=== PATIENT | male | born 1935 | race Caucasian/White ===

== ENCOUNTER → 2016-03-20 | Outpatient (CLI) | payer OTHER ==
[~2016-03-20] MED LIST: ASPI325T45 PO; BACL10TA PO; CHOL100010 PO; CLOP1TAB15 PO; LDDP5 TD; LISI-461 PO; PREG1CAP70 PO; TERA1CAP PO
--- NOTE | 2016-03-20 15:21 | DIAGNOSTIC IMAGING REPORT ---
RIGHT UPPER EXTREMITY ULTRASOUND CLINICAL HISTORY: Deltoid mass. COMPARISON STUDY: Chest CT May 17, 2015. FINDINGS: No mass or fluid collection was identified within the region the right deltoid muscle by sonography. Echogenicity of the tissues was slightly increased compared to the left upper extremity. IMPRESSION: 1. No mass or fluid collection identified within the right upper extremity by sonography. 2. Nonspecific increased echogenicity of the subcutaneous tissues of the right upper arm when compared to left. This could reflect edema or contusion. Electronically signed by: Garfield Snowden M.D. 03/20/2016 3:19 PM Dictated Date/Time: 03/20/2016 3:17 PM
== END | disposition home or self-care (01) ==
LOC: C.ULTR 14:23
PROVIDERS: ATTEND Physical Medicine & Rehabilitation
DX: R22.31 Localized swelling, mass and lump, right upper limb (principal)

== ENCOUNTER → 2016-04-21 | Outpatient (CLI) | payer OTHER ==
[2016-04-21 16:31] LABS: BASO % 0.1 %; BASO ABS # 0.01 K/uL (0-0.2); COMPLETE YES; EOS % 1.9 %; HEMATOCRIT 41.4 % (42-52); IG% 0.1 %; LYMPH % 21.9 %; LYMPH ABS # 1.53 K/uL (1.2-3.4); MEAN CORPUSCULAR HEMOGLOBIN 30.2 pg (25-34); MEAN CORPUSCULAR HGB CONC 33.6 g/dl (32-36); MEAN PLATELET VOLUME 10.6 fL (7.4-10.4); MONO % 9.3 %; NEUT % 66.7 %; PLATELET COUNT 209 K/uL (130-400)
[2016-04-21 16:41] LABS: ALT/SGPT 23 U/L (12-78); AST/SGOT 18 U/L (15-37); BLOOD UREA NITROGEN 26 mg/dl (7-18); BUN/CREATININE RATIO 26.5 (10-20); CALCIUM 9.2 mg/dl (8.5-10.1); CARBON DIOXIDE 28 mmol/L (21-32); CHLORIDE 104 mmol/L (98-107); GLUCOSE 81 mg/dl (70-99); POTASSIUM 4.7 mmol/L (3.5-5.1); SODIUM 140 mmol/L (136-145)
[2016-04-21 16:52] LABS: ALB/GLOB RATIO 1.1 (0.9-2); ALKALINE PHOSPHATASE 97 U/L (45-117)
--- NOTE | 2016-05-01 10:00 | CODING QUERY MEDICAL NECESSITY ---
CQSUPPORTING DIAGNOSIS NEEDED A supporting diagnosis is required for the test/procedure performed on this patient in order for us to be reimbursed by the patient's insurance. Please provide a supporting diagnosis for the following test/procedure listed below next to the test name along with your signature. *If there is no additional diagnosis for this patient that would support the following test/procedure please document that below next to the test/procedure. Test(s)/Procedure(s) that require a supporting diagnosis: DOS 04/21/16 VITAMIN B12 TEST ORDERED BY KRANTHI CHU Provider Signature: Date: Thank you Nara Horton Health Information Management Once completed, please kindly fax back to [phone] For questions please call [phone]
== END | disposition home or self-care (01) ==
LOC: C.LAB1850 15:30
PROVIDERS: ATTEND Psychiatry & Neurology Neurology
DX: R53.83 Other fatigue (principal)

== ENCOUNTER → 2016-06-16 | Outpatient (CLI) | payer OTHER ==
[~2016-06-16] MED LIST changes: +ASPI81TA28 PO; +CHOL1CAP67 PO; +CYM30 PO; +LYR/50 PO; +NRN100 PO; +PRAV10TA39 PO; +RBX500 PO
--- NOTE | 2016-06-16 15:44 | DIAGNOSTIC IMAGING REPORT ---
RIGHT HIP 2 VIEWS CLINICAL HISTORY: Right hip pain. Fall. FINDINGS: AP and frog-leg views of the right hip are compared to study dated 04/20/2015. The skeletal structures are osteopenic. No fracture is identified in the right hip or the visualized right hemipelvis. Mild arthritic change and joint space narrowing are noted in the right hip. The overlying Soft tissues are within normal limits. Brachytherapy beads are noted in the prostate gland. IMPRESSION: There is no radiographic evidence of right hip fracture. Electronically signed by: Vinnie Caceres M.D. 06/16/2016 3:43 PM Dictated Date/Time: 06/16/2016 3:42 PM
--- NOTE | 2016-06-16 15:44 | DIAGNOSTIC IMAGING REPORT ---
RIGHT SHOULDER MIN 2 VIEWS ROUTINE CLINICAL HISTORY: FELL AT HOME, RIGHT SHOULDER PAIN Right trauma. Pain. COMPARISON: None. DISCUSSION: Grade 1 separation right acromioclavicular joint. Degenerative change right glenohumeral joint. No well-defined evidence for fracture. Osteopenia. There is no evidence for soft tissue swelling. IMPRESSION: 1. Grade 1 separation right acromioclavicular joint. 2. Degenerative change glenohumeral joint with evidence for underlying osteopenia. Electronically signed by: Avel Myo M.D. 06/16/2016 3:42 PM Dictated Date/Time: 06/16/2016 3:41 PM
== END | disposition home or self-care (01) ==
LOC: C.RAD1850 14:49
PROVIDERS: ATTEND Family Medicine
DX: M25.551 Pain in right hip (principal); S43.101A Unspecified dislocation of right acromioclavicular joint, initial encounter; W19.XXXA Unspecified fall, initial encounter

== ENCOUNTER 2016-12-30 09:08 | Emergency (ER) | payer OTHER ==
[~2016-12-30] VITALS: Ht 177.8 cm; Wt 75.1 kg
[~2016-12-30 09:08] MED LIST changes: -ASPI81TA28 PO; -CHOL1CAP67 PO; -CYM30 PO; -LYR/50 PO; -NRN100 PO; -PRAV10TA39 PO; -RBX500 PO
[2016-12-30 09:16] VITALS: TEMP 36.7; Ht 177.8 cm; Wt 75.1 kg
[2016-12-30] MEDS ORDERED: XYLOCAINE 1%/SOD BICARB 20 ML VIAL INFIL ONE (09:17)
[2016-12-30] MEDS ORDERED: DIPHTHERIA/TETANUS/PERTUSSIS 0.5 ML SYR/VIAL IM. ONE (10:00)
[2016-12-30] MEDS ORDERED: PRAV10TA39 PO (10:34)
[2016-12-30] MEDS ORDERED: NRN100 PO (10:34)
[2016-12-30] MEDS ORDERED: LYR/50 PO (10:34)
[2016-12-30] MEDS ORDERED: CYM30 PO (10:34)
[2016-12-30] MEDS ORDERED: RBX500 PO (10:34)
[2016-12-30] MEDS ORDERED: CHOL1CAP67 PO (10:37)
[2016-12-30] MEDS ORDERED: ASPI81TA28 PO (10:37)
--- NOTE | 2016-12-30 10:42 | DIAGNOSTIC IMAGING REPORT ---
HEAD CT NONCONTRAST CT DOSE: 614.27 mGy.cm HISTORY: Fall. Head injury. CHI TECHNIQUE: Multiaxial CT images of the head were performed without the use of intravenous contrast. Automated exposure control was utilized for this study. A dose lowering technique was utilized adhering to the principles of ALARA. Comparison: Head CT 05/17/2015. Findings: Small amount of bubbly secretions within the right maxillary sinus. A few partially opacified ethmoid air cells. The mastoid air cells are clear. The calvarium and skull base are intact. There is no mass, hematoma, midline shift, acute infarct. White matter hypodensity is nonspecific but suggestive of microvascular ischemic change. The ventricles and sulci demonstrate mild age-related involutional changes. Punctate density within the left MCA territory infarct on image 20 likely represents a calcification. Old large MCA territory infarct. Small old lacunar infarct within the left basal ganglia. Small arachnoid cyst within the left middle cranial fossa, unchanged. Impression: No significant change compared to the prior study. No acute intracranial abnormality. Old left MCA territory infarct. Electronically signed by: Missael Francis M.D. 12/30/2016 10:40 AM Dictated Date/Time: 12/30/2016 10:34 AM
--- NOTE | 2016-12-30 13:11 | EMERGENCY ROOM VISIT NOTE ---
History Report prepared by Stuart: Jose Roberto Leiva Under the Supervision of: Dr. Terri Porras M.D. First contact with patient: 09:37 Chief Complaint: LACERATION/CUT (SUT/DERMABOND) Stated Complaint: LACERATION FROM FALL Nursing Triage Summary: see triage note History of Present Illness The patient is a 81 year old male who presents to the Emergency Room with complaints of constant right ear pain s/p fall occurring just prior to arrival. He states that he woke up and opened his curtains to look at the stars when he tripped over a trunk. He fell onto the right side of his head, and is unsure if he landed on something. The patient did not lose consciousness. He is on Plavix and baby aspirin. He denies any neck pain. The patient was able to get himself up after falling. He believes that his tetanus is up to date. Source of History: patient Onset: Just prior to arrival Position: ear (right) Timing: constant Associated Symptoms: No LOC, No neck pain Review of Systems See HPI for pertinent positives & negatives. A total of 10 systems reviewed and were otherwise negative. Past Medical & Surgical Medical Problems: (1) Carotid stenosis (2) Contusion of multiple sites (3) Fall (4) Stroke (5) Stroke (6) Syncope (7) Weakness following cerebrovascular accident (CVA) Family History Patient reports no known family medical history. Social History Smoking Status: Never Smoker Alcohol Use: none Drug Use: none Marital Status: Housing Status: lives with significant other Occupation Status: retired Current/Historical Medications Scheduled Aspirin (Aspirin Ec), 81 MG PO DAILY Cholecalciferol (Vitamin D-3), 1,000 UNITS PO DAILY Clopidogrel (Plavix), 75 MG PO QAM Duloxetine HCl (Duloxetine HCl), 90 MG PO DAILY Gabapentin (Gabapentin), 100 MG PO TID Lisinopril (Zestril), 10 MG PO DAILY Methocarbamol (Methocarbamol), 500 MG PO BID Pravastatin Sodium (Pravastatin Sodium), 10 MG PO DAILY Pregabalin (Lyrica), 50 MG PO BID Allergies Coded Allergies: No Known Allergies (Unverified , 12/30/16) Physical Exam Vital Signs Date Time Temp Pulse Resp B/P (MAP) Pulse Ox O2 Delivery O2 Flow Rate FiO2 12/30/16 13:28 60 18 172/81 97 12/30/16 11:25 56 18 165/84 98 Room Air 12/30/16 09:16 36.7 57 18 195/103 95 Room Air Physical Exam Vital signs reviewed. General: Elderly-appearing male, in no significant distress. Chronically debilitated appearing. HEENT: No scleral icterus, PERRLA, neck supple. Through and through 3 cm laceration to the right ear lobe. Dressing over right ear. Cardiovascular: Regular rate and rhythm, no extra sounds. Pulmonary: Clear to auscultation bilaterally, normal work of breathing. Abdomen: Soft, nontender, nondistended, positive bowel sounds. Musculoskeletal: No peripheral edema. No cervical spine tenderness. 2 cm skin tear to the right elbow. Neurologic: Patient awake alert and oriented x 3. Skin: Warm, dry, no rash Medical Decision & Procedures ER Provider Diagnostic Interpretation: Radiology results as stated below per my review and radiologist interpretation: HEAD CT NONCONTRAST Findings: Small amount of bubbly secretions within the right maxillary sinus. A few partially opacified ethmoid air cells. The mastoid air cells are clear. The calvarium and skull base are intact. There is no mass, hematoma, midline shift, acute infarct. White matter hypodensity is nonspecific but suggestive of microvascular ischemic change. The ventricles and sulci demonstrate mild age-related involutional changes. Punctate density within the left MCA territory infarct on image 20 likely represents a calcification. Old large MCA territory infarct. Small old lacunar infarct within the left basal ganglia. Small arachnoid cyst within the left middle cranial fossa, unchanged. Impression: No significant change compared to the prior study. No acute intracranial abnormality. Old left MCA territory infarct. Electronically signed by: Missael Francis M.D. 12/30/2016 10:40 AM Medications Administered Medications (Trade) Dose Ordered Sig/[place] Route Start Time Stop Time Status Last Admin Dose Admin Diphtheria/ Pertussis/Tetanus Vacc (Adacel Inj) 0.5 ml ONCE ONCE IM. 12/30/16 10:00 12/30/16 10:01 DC 12/30/16 11:31 0.5 ML ED Course 0940: Past medical records reviewed. The patient was evaluated in room B12B. A complete history and physical examination was performed. 1000: Ordered Adacel Inj 0.5 mL IM. 1251: Upon reevaluation, the patient appeared to have improvement of his symptoms. I discussed findings with him. He verbalized agreement of the treatment plan. The patient was discharged home. Medical Decision Differential diagnosis: Intracranial injury, cervical spine injury, intrathoracic injury, intra- abdominal injury, musculoskeletal injury. This patient was evaluated and appeared to be in no significant distress. Patient's right earlobe was evaluated and shows a significant through and through laceration. Patient's tetanus status was updated. The wound was repaired by Nica Chavarria PA-C. Please see her notes for further details. CT scan of the head was performed and is negative. Patient was given wound care instructions in the presence of his . They will follow-up with the PCP for suture removal. He'll return to the ER for worsening of symptoms or any medical concerns. Medication Reconcilliation Current Medication List: was personally reviewed by me Blood Pressure Screening Patient's blood pressure: Elevated blood pressure Blood pressure disposition: Referred to PCP Impression Primary Impression: Laceration of right ear Additional Impressions: Fall Skin tear of right elbow without complication Scribe Attestation The scribe's documentation has been prepared under my direction and personally reviewed by me in its entirety. I confirm that the note above accurately reflects all work, treatment, procedures, and medical decision making performed by me. Departure Information Dispostion Home / Self-Care Referrals Nirav Cruz M.D. (PCP) Forms HOME CARE DOCUMENTATION FORM, IMPORTANT VISIT INFORMATION Patient Instructions My [facility] Additional Instructions Diagnosis: Laceration of the right earlobe, fall, right elbow skin tear Wash wounds with warm water and soap 1-2 times daily as needed. Cover with a dry dressing. Sutures removed by your PCP in 7-10 days. You were given an Adacel injection today. Return to the emergency department for worsening of symptoms or any medical concerns. Problem Qualifiers
[2016-12-30 13:28] VITALS: BP 172/81; PULSE 60; O2SAT 97
--- NOTE | 2016-12-30 16:37 | EMERGENCY ROOM VISIT NOTE ---
ED Visit Note EMERGENCY DEPARTMENT PROCEDURE NOTE: I was asked by Dr. Porras to repair the right ear laceration of this 81-year -old white male patient. Please refer to their dictation for the complete history, physical exam, and ED course. EMERGENCY DEPARTMENT COURSE: The wound was cleansed with saline thoroughly, then prepped with chlorhexidine and draped with sterile towels. The wound was anesthetized with 1% plain buffered lidocaine. The 3 cm laceration was irrigated copiously using normal saline solution and direct pressure irrigation. The wound was repaired using 6-0 nylon sutures. Bacitracin was applied. Patient tolerated the procedure well.
== END 2016-12-30 13:28 | disposition home or self-care (01) ==
LOC: C.EDB 09:09
DX: S01.311A Laceration without foreign body of right ear, initial encounter (principal); S53.401A Unspecified sprain of right elbow, initial encounter; W01.0XXA Fall on same level from slipping, tripping and stumbling without subsequent striking against object, initial encounter; Z79.82 Long term (current) use of aspirin; Z79.899 Other long term (current) drug therapy; Z87.81 Personal history of (healed) traumatic fracture; Z91.81 History of falling

== ENCOUNTER → 2017-03-01 | Outpatient (CLI) | payer OTHER ==
[~2017-03-01] MED LIST changes: -ASPI325T45 PO; +ASPI81TA28 PO; -BACL10TA PO; -CHOL100010 PO; +CHOL1CAP67 PO; +CYM30 PO; -LDDP5 TD; +LYR/50 PO; +NRN100 PO; +PRAV10TA39 PO; -PREG1CAP70 PO; +RBX500 PO; -TERA1CAP PO
--- NOTE | 2017-03-01 15:17 | DIAGNOSTIC IMAGING REPORT ---
R SHOULDER MIN 2 VIEWS CLINICAL HISTORY: RIGHT SHOULDER PAIN pain COMPARISON: 2016 DISCUSSION: Moderate generalized degenerative change of the right shoulder including glenohumeral and acromioclavicular joints. Subacute to old fractures right sixth and eighth ribs. Right pulmonary apex is clear. There is no evidence for soft tissue swelling. IMPRESSION: 1. Degenerative change right shoulder and acromioclavicular joint.. 2. No acute process specifically of the right shoulder. 3. Subacute to old fractures right sixth and eighth ribs. The above report was generated using voice recognition software. It may contain grammatical, syntax or spelling errors. Electronically signed by: Avel Moy M.D. 03/01/2017 3:16 PM Dictated Date/Time: 03/01/2017 3:14 PM
== END | disposition home or self-care (01) ==
LOC: C.RDSM 12:58
PROVIDERS: ATTEND Family Medicine
DX: M25.511 Pain in right shoulder (principal)

== ENCOUNTER → 2017-05-03 | Outpatient (CLI) | payer OTHER ==
[~2017-05-03] MED LIST changes: +DULO60CA44 PO; +LSN20 PO
--- NOTE | 2017-05-03 15:55 | DIAGNOSTIC IMAGING REPORT ---
LUMBAR SPINE MRI HISTORY: Back pain. Right hip pain. TECHNIQUE: Multiplanar multisequence MRI of the lumbar spine was performed without the use of contrast. COMPARISON: None. FINDINGS: For the purpose of the report the L5-S1 disc space will be located on axial image 23 of 25. There is 3 mm of retrolisthesis of L5 on S1. Severe disc space. L5-S1. Moderate to space narrowing at L2-L3. Mild superior endplate compression fractures at T12 and L2. No associated marrow edema. Therefore, these are considered to be old. No associated retropulsion. The conus terminates at the L1 level. S1 is demonstrated to be a transitional vertebra with a hypoplastic S1-S2 disc space. Mild facet degenerative changes within the lumbar spine. 1.7 cm hyperintense area within the left iliac bone consistent with a sclerotic focus. This favors a bone island. L1-L2: Small broad-based posterior disc bulge. No significant central canal or neural foraminal narrowing. L2-L3: No significant central canal or neural foraminal narrowing. L3-L4: No significant central canal narrowing. Mild left-sided neural foraminal narrowing due to a small left foraminal focal disc protrusion. This does not abut the exiting nerve root. L4-L5: Small broad-based posterior disc bulge without significant central canal narrowing. There is mild left-sided neural foraminal narrowing due to the facet hypertrophy. Best is on axial image 16 there is a 8 x 5 mm round right paracentral subligamentous lesion. This favors a sequestered disc fragment. This abuts and compresses the exiting right L4 nerve root at this level. L5-S1: No significant central canal or neural foraminal narrowing. IMPRESSION: 1. An 8 x 5 mm right paracentral sequestered disc fragment posterior to the L4 vertebral body. This abuts and compresses the exiting right L4 nerve root. 2. Old mild superior endplate compression fractures at T12 and L2. 3. No central canal narrowing. Electronically signed by: Missael Francis M.D. 05/03/2017 3:54 PM Dictated Date/Time: 05/03/2017 3:43 PM
== END | disposition home or self-care (01) ==
LOC: C.MRIBC 14:53
PROVIDERS: ATTEND Physician Assistant
DX: M54.16 Radiculopathy, lumbar region (principal); M51.26 Other intervertebral disc displacement, lumbar region

== ENCOUNTER → 2017-05-28 | Day surgery (SDC) | payer OTHER ==
[2017-05-21 09:10] VITALS: Ht 180.3 cm; Wt 79.5 kg
[~2017-05-28] VITALS: Ht 180.3 cm; Wt 79.5 kg
[~2017-05-28] MED LIST changes: -CYM30 PO; +IOPAMIDOL INJ 61% 15 ML VIAL ONE; +LIDOCAINE HCL 1% MPF 5 ML VIAL ONE; -LISI-461 PO; -NRN100 PO; +SODIUM CHLORIDE 0.9% INJ 10 ML VIAL ONE
--- NOTE | 2017-05-28 09:56 | History & Physical Bridge - SC ---
H&P Re-Evaluation Bridge Note: I have examined the patient, reviewed the History & Physical and in the interval since the performance of the History & Physical I have noted the following changes of clinical significance: No changes noted
--- NOTE | 2017-05-28 10:14 | [facility] Post Operative Brief Note ---
Immediate Operative Summary Operative Date May 28, 2017. 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 Left CVA with right hemiparesis. Post-Operative Diagnosis Same Procedure(s) Performed Caudal Epidural Steroid Injection Surgeon Dr Jimbo Modi Bag Loader Surgeon(s) None Estimated Blood Loss 0 Findings Consistent with Post-Op Diagnosis Specimens NA Drains None Anesthesia Type Local Complication(s) none Disposition Disposition:
--- NOTE | 2017-05-28 10:15 | Discharge Instructions ---
Discharge Instructions Date of Service May 28, 2017. Visit Reason for Visit: Lumbar Disc Herniation With Radiculopathy Discharge Discharge Diagnosis / Problem: Right leg pain Discharge Goals Goal(s): Decrease discomfort, Improve function Activity Recommendations Activity Limitations: resume your previous activity Anesthesia . Post Anesthesia Instructions: If you have had General Anesthesia or IV Sedation: * Do not drive today. * Resume driving when surgeon permits. * Do not make important decisions or sign legal documents today. * Call surgeon for: 1. Temperature elevations greater than 101 degrees F. 2. Uncontrollable pain. 3. Excessive bleeding. 4. Persistent nausea and vomiting. 5. Medication intolerance (nausea, vomiting or rash). * For nausea and vomiting use only clear liquids such as: tea, soda, bouillon until nausea subsides, then gradually increase diet as tolerated. * If you have any concerns or questions, call your surgeon's office. If physician is unavailable and it is an emergency, call 911 or go to the nearest emergency room. . Diet Recommendations Recommended Home Diet: resume previous diet Procedures Procedures Performed: Caudal Epidural Steroid Injection Pending Studies Studies pending at discharge: no Medical Emergencies . Who to Call and When: Medical Emergencies: If at any time you feel your situation is an emergency, please call 911 immediately. . Non-Emergent Contact Non-Emergency issues call your: Specialist . . "Provider Documentation" section prepared by Jimbo Modi. .
[2017-05-28 10:38] VITALS: BP 137/81; PULSE 66; O2SAT 97
--- NOTE | 2017-05-28 11:05 | OPERATIVE REPORT ---
DATE OF OPERATION: 05/28/2017 PREOPERATIVE DIAGNOSES: L4-L5 herniated nucleus pulposus with sequestered fragment with a L4 radiculopathy. POSTOPERATIVE DIAGNOSIS: Same. PROCEDURE: Caudal epidural steroid injection under fluoroscopic guidance. INDICATIONS: The patient is an 81-year-old white male who has a significant sequestered fragment and a right L4 radiculopathy. He presents today for an epidural injection. He will be given the caudal approach as he took his Plavix and aspirin and did not hold them. PHYSICAL EXAMINATION: Pleasant male, seated comfortably. He has discomfort in the right leg, uncomfortable to bend forward, more comfortable ambulating in a prone position with a long walking stick of the left leg as he circumducts advance his leg. No instability of the knee was present. CONSENT: Verbal and written consent was obtained from the patient. Risks and benefits were reviewed. Risks include but are not limited to abscess and allergic reaction. The patient wishes to proceed. DESCRIPTION OF PROCEDURE: The patient was taken back to the special procedures room of the [facility] where he was maintained in a prone position. Backside was cleansed with Betadine x3 and a dry sterile dressing was applied. Fluoroscope was used to identify sacral hiatus and overlying skin was anesthetized with 2.5 mL of lidocaine 1% with a 25 gauge 1.5-inch needle. A 25 gauge 3.5 inch spinal needle was then directed under fluoroscopic guidance into the canal and underwent injection after negative aspiration of 40 mg Depo-Medrol and 4 mL of preservative free sodium chloride. Injection was well tolerated. DISPOSITION: 1. The patient is taken out into the discharge recovery area where he will be discharged home once discharge criteria have been met. 2. Follow up in the [facility] office in 2-4 weeks. I attest to the content of the Intraoperative Record and any orders documented therein. Any exception s are noted below.
== END | disposition home or self-care (01) ==
LOC: X.SURG 09:21
PROVIDERS: ATTEND Physical Medicine & Rehabilitation
DX: M51.16 Intervertebral disc disorders with radiculopathy, lumbar region (principal); Z79.82 Long term (current) use of aspirin; Z79.02 Long term (current) use of antithrombotics/antiplatelets; Z79.899 Other long term (current) drug therapy

== ENCOUNTER 2020-07-27 14:53 | Inpatient (IN) ==
[2020-07-27] MEDS ORDERED: niCARdipine 25 MG in SODIUM CHLORIDE 0.9% 240 ML IV PRN (15:57)
[2020-07-27] MEDS ORDERED: OPTIRAY 350 500ml IV ONE (16:07)
--- NOTE | 2020-07-27 16:21 | CT Scan Report ---
CT head/brain wo con CLINICAL HISTORY: Stroke Like Symptoms COMPARISON STUDY: December 30, 2016 TECHNIQUE: Axial CT of the brain is performed from the vertex to the skull base. IV contrast was not administered for this examination. A dose lowering technique was utilized adhering to the principles of ALARA. CT DOSE: 1211.29 mGy.cm FINDINGS: No acute intracranial hemorrhage, no midline shift or space occupying lesions are seen. Large area of encephalomalacia is seen involving left frontal and temporal region representing old le ft MCA territory infarct. There are patchy white matter hypodensities likely on a small vessel basis. Redemonstration of atrophic changes of brain parenchyma mostly involving bilateral temporal lobes and associated with ex vacuo dilatation of ventricles. Small infarct within left basal ganglia is again seen. There is no acute depressed skull fractures seen. Visualized paranasal sinuses and mastoid air cells are patent and well-aerated. Vascular calcifications are seen within the anatomical region of bilateral internal carotid arteries. IMPRESSION: 1. No acute intracranial hemorrhage, no midline shift or space occupying lesions. 2. Stable old infarct within left MCA territory. ACT 112: Negative or not required by law. The above report was generated using voice recognition software. It may contain grammatical, syntax o r spelling errors. Electronically signed by: Ingrid Patel DO 07/27/2020 4:19 PM
--- NOTE | 2020-07-27 16:31 | XRay Report ---
XR chest 1V portable CLINICAL HISTORY: Stroke Like Symptoms COMPARISON STUDY: Chest CT May 17, 2015. FINDINGS: Lung volumes are normal. Lungs are clear. There is no pneumothorax or pleural effusion. Car diac size is stable. Mediastinal contours are normal. There is no evidence for pulmonary edema. Old b ilateral rib fractures are incidentally noted. IMPRESSION: No acute cardiopulmonary findings. ACT 112: Negative or not required by law. Electronically signed by: Garfield Snowden M.D. 07/27/2020 4:30 PM
--- NOTE | 2020-07-27 16:35 | CT Scan Report ---
CT ANGIOGRAPHY OF THE NECK WITH CONTRAST CLINICAL HISTORY: Stroke Like Symptoms COMPARISON STUDY: CTA of the neck July 22, 2014. Technique: CT angiography of the carotid and vertebral arteries was obtained using [employer] and 3D rec onstruction on an independent workstation. NASCET criteria was utilized. Automated exposure control was utilized for the study. A dose lowering technique was utilized adhering to the principles of ALA RA. Findings: Lung apices are clear. There is no cervical lymphadenopathy or cervical spine fracture. The re is moderate to severe stenosis at the origin of the right subclavian artery. The right vertebral a rtery is patent. Note is made of moderate to severe stenosis at the origin of the left vertebral oscar ry. There is no dissection within the major vessels of the neck. The left carotid stent is patent. No te is made of mild multifocal stenoses within the distal cervical portion of the left internal caroti d artery. There is moderate plaque within the proximal right internal carotid artery without signific ant stenosis. IMPRESSION: 1. Patent left carotid stent. Mild multifocal stenosis within the distal cervical portion of the left internal carotid artery. 2. 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 ACT 112: Negative or not required by law. Electronically signed by: Garfield Snowden M.D. 07/27/2020 4:34 PM
[2020-07-27 16:38] LABS: Appearance Urine Clear (Clear); Bacteria Urine Automated Negative (Negative); Bilirubin Urine Negative (Negative); Blood Urine Trace (Negative); Cast Urine Automated 0 /lpf (0-5); Color Urine Yellow; Epithelial Cell Urine Auto 0-5 /lpf (0-5); Glucose Urine UA Negative (Negative); Ketones Urine Negative (Negative); Leukocyte Esterase Urine Negative (Negative); Nitrite Urine Negative (Negative); Protein Urine Negative (Negative); RBC Urine Automated 0-4 /hpf (0-4); Specific Gravity Urine 1.015 (1.000-1.030); Urobilinogen Urine Negative (Negative); WBC Urine Automated 0 /hpf (0-5)
--- NOTE | 2020-07-27 16:38 | CT Scan Report ---
CT angio head w con CLINICAL HISTORY: Stroke Like Symptoms TECHNIQUE: CT angiography of the head was performed in a dynamic helical fashion during intravenous a dministration of 118 cc of Optiray. MIP imaging was performed. A dose lowering technique was utilized adhering to the principles of ALARA. CT DOSE: COMPARISON STUDY: No previous studies for comparison. FINDINGS: Above 50% stenosis is seen within distal cervical aspect of the left internal carotid artery (5/42). Concentric atherosclerotic plaques are seen within supraclinoid aspect of the right and left carotid artery which shows blooming artifact and around 50-69% stenosis within left internal carotid artery ( 5/93). Mild nodularity of the right middle cerebral artery is seen with calcified plaques within its wall an d no evidence of focal occlusion. Right and left anterior communicating arteries and bilateral anterior cerebral arteries are patent. Distal portion of the right vertebral artery is opacified throughout its visualized aspect without fo lazaro occlusion or significant stenosis. V4 segment of the left vertebral artery is not opacified and no connection to the right vertebral art vishnu is seen. Basal artery is small in caliber and tortuous. origin of the tortuous right posterior vertebral cerebral artery is seen. Left posterior cerebral artery is tortuous and shows nodular appearance. There is focal occlusion at the P2 segment (5/115) and are reconstitution of the distal flow within its distal aspect. IMPRESSION: 1. 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 2. 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 3. origin of the right posterior cerebral artery. 4. 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 ACT 112: Positive. There are findings on this exam that require communication between the performing entity and the patient following Patient Test Result Information Act ([place] Act 112) guidelines. The above report was generated using voice recognition software. It may contain grammatical, syntax o r spelling errors. Electronically signed by: Ingrid Patel DO 07/27/2020 4:36 PM
[2020-07-27 16:46] LABS: Basophils # (auto) 0.01 K/uL (0-0.2); Basophils % (auto) 0.1 %; Eosinophils # (auto) 0.05 K/uL (0-0.5); Eosinophils % (auto) 0.7 %; Hematocrit (blood only) 37.1 % (42-52); Hemoglobin 12.3 g/dL (14.0-18.0); Immature Granulocytes # (auto) 0.02 K/uL (0.00-0.02); Immature Granulocytes % (auto) 0.3 %; Lymphocytes # (auto) 1.03 K/uL (1.2-3.4); Lymphocytes % (auto) 13.6 %; Mean Corpuscular Hemoglobin 29.4 pg (25-34); Mean Corpuscular Hgb Conc 33.2 g/dL (32-36); Mean Corpuscular Volume 88.8 fL (80-100); Mean Platelet Volume 10.4 fL (7.4-10.4); Monocytes # (auto) 0.52 K/uL (0.11-0.59); Monocytes % (auto) 6.8 %; Neutrophils # (auto) 5.97 K/uL (1.4-6.5); Neutrophils % (auto) 78.5 %; Platelet Count 207 K/uL (130-400); RDW Coefficient of Variation 13.2 % (11.5-14.5); Red Blood Count 4.18 M/uL (4.7-6.1)
[2020-07-27 17:03] LABS: Partial Thromboplastin Ratio 1.1; Partial Thromboplastin Time 28.9 Seconds (21.0-31.0); Prothrombin Time 10.2 Seconds (9.0-12.0)
[2020-07-27 17:08] LABS: Alanine Aminotransferase 13 U/L (12-78); Albumin Level 3.6 gm/dl (3.4-5.0); Aspartate Aminotransferase 11 U/L (15-37); BUN Creatinine Ratio 27.5 (10-20); Blood Urea Nitrogen 26 mg/dl (7-18); Calcium 9.2 mg/dl (8.5-10.1); Carbon Dioxide 24 mmol/L (21-32); Chloride 99 mmol/L (98-107); Creatinine Clr Calc Pharmacy 61.2 ml/min; Est GFR (African American) 85.3 ml/min; Est GFR (Non-African American) 73.6 ml/min; Glucose 98 mg/dl (70-99); Magnesium 2.3 mg/dl (1.8-2.4); Potassium 4.4 mmol/L (3.5-5.1); Sodium 130 mmol/L (136-145)
[2020-07-27] MEDS ORDERED: MAGNESIUM SULFATE / D5W 1 GM/100 ML BAG IV STA (17:09)
[2020-07-27 17:12] LABS: Albumin Globulin Ratio 1.2 (0.9-2); Alkaline Phosphatase 109 U/L (45-117); Bilirubin,Total 0.4 mg/dl (0.2-1); Globulin 3.1 gm/dl (2.5-4.0); Total Protein 6.7 gm/dl (6.4-8.2); Troponin I < 0.015 ng/ml (0-0.045)
--- NOTE | 2020-07-27 17:28 | Emergency Department Note ---
Impression & Plan Weakness following cerebrovascular accident (CVA) ED Provider Note NAME: RADHA MARTIN AGE: 85 SEX: M : 1935 ARRIVES VIA: Ambulance INFORMANT: Patient, daughter, ED PROVIDER(S): Olaf Key MD CHIEF COMPLAINT: "Im having a stroke" HPI: This is an 85-year-old male with a history of hemorrhagic CVA who presents emergency department complaining of sudden change in vision as well as sudden loss of balance. The patient's daughter reports that his last known well was last evening. She noticed at lunch today that the patient was unable to walk as he normally does. He was ambulating poorly and in addition was saying that he could not see correctly due to blurry vision. The patient himself reported that he was having a stroke. Upon arrival to the emergency department the patient is tired however he states he is feeling better. They did not take anything prior to arrival ROS: See above HPI for pertinent positives & negatives. A total of 10 systems reviewed and were otherwise negative. PAST MEDICAL HISTORY: See Below PAST SURGICAL HISTORY: See Below FAMILY HISTORY: See Below SOCIAL HISTORY: See Below HOME MEDICATIONS: See Below ALLERGIES: See Below VITALS: See Below PHYSICAL EXAMINATION: VITAL SIGNS - Vital signs and nursing notes were reviewed. GENERAL - 85-year-old male appearing stated age who is in no acute distress. Communicates well with provider and answers questions appropriately. SKIN - Without rashes. HEAD - NC/AT. EYES - PERRL with EOMI bilaterally. Sclera anicteric. Palpebral conjunctiva pink and moist with no injection noted. EARS - No deformities of external structures noted on gross examination bilaterally. NOSE - Midline and without cyanosis. No epistaxis or purulent drainage noted. Septum midline without deviation or septal hematoma noted. MOUTH/OROPHARYNX - Without perioral cyanosis. Buccal mucosa pink and moist and without leukoplakia. Tongue midline with equal elevation of palate bilaterally. No tonsillar hypertrophy, erythema, or exudates noted. NECK - Neck with FROM. Supple to palpation.No nuchal rigidity. LUNGS - Chest wall symmetric without accessory muscle use, intercostals retractions, or central cyanosis. Normal vesicular breath sounds CTA B/L. No wheezes, rales, or rhonchi appreciated. CARDIAC - RRR with S1/S2. No murmur, rubs, or gallops appreciated. ABDOMEN - Abdominal contour without pulsations or visible masses. BS normoactive all four quadrants. No tenderness, palpable masses, hepatos plenomegaly, or ascites noted. EXTREMITIES - No clubbing or peripheral cyanosis. No pretibial edema present. +3/5 radial, posterior tibial, and dorsalis pedis pulses palpated throughout. +5/5 strength noted in UE/LE bilaterally. NEUROLOGIC - Cranial nerves II through XII grossly intact. Sensory intact to light touch throughout. Patellar reflexes +2/4. PSYCH - A&Ox3 and cooperates fully with examiner. Pt is very pleasant and interacts well with examiner. MEDICAL DECISION MAKING: Patient was seen and evaluated as above in room A10. Review was performed of nursing notes and vital signs. I did review pertinent previous visits and patient history. After obtaining a thorough history and physical examination the above work up was performed. This is an 85-year-old male who presents emergency department complaining of being unable to walk. Using shared medical decision making patient was sent for CTA of the head and neck. I did consider TPA use however this patient has a history of intracranial hemorrhage and therefore I do not feel he is a good candidate. In addition I am not sure of when the patient's last well-known was as it sounds like it may have been last evening. The CTA is concerning for a stroke at the P2 level. For this reason I do feel the patient should be admit denis. He was found to be hypertensive in the emergency department and was placed on a nicardipine drip. I did discuss the case with the hospitalist service who did agree to meet the patient. An order was placed for continuous cardiac monitoring. The monitor shows a rate of 62 with Normal Sinus rhythm. The patient was evaluated during a period of high volume and high acuity during the global COVID-19 pandemic, and that diagnosis was suspected/considered upon their initial presentation. Their evaluation, treatment and testing was consistent with current guidelines for patients who present with complaints or symptoms that may be related to COVID-19. Patient was seen while provider was wearing PPE. Triage Nursing notes reviewed. Prior medical records reviewed Vital Signs: reviewed and remarkable for no significant abnormalities Differential diagnosis: Infection, dehydration, metabolic abnormality, hypo/hyperglycemia, electrolyte disturbance, anemia, hypoxia, cardiac sources, intracerebral event, toxicologic, neurologic, as well as other pathologies. ER treatment provided: See below Diagnostics interpreted by me: ECG: Sinus bradycardia with premature supraventricular complexes incomplete right bundle branch block no ST elevation or depression T wave inversions in the inferior leads QTC is 411 ventricular rate is 55 when compared with EKG of 05/19/2015 premature supraventricular complexes are now present incomplete right bundle branch block is now present. Laboratory studies: As stated above and show below. Imaging studies: See below Consultation(s): Jazmin Stroke Neurologist- Pt is not a candidate fro clot retrieval Internal Medicine Critical Care: I have personally spent greater than 30 minutes of critical care time in the direct management of this patient. This includes bedside care, interpretation of diagnostic studies, and testing, discussion with consultants, patient, and family members, and other required patient management activities. This 30 minutes is in excess of all separately billable procedures. 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 Hernia History of brachytherapy Neuropathic pain Right gilles sensory pain from stroke Surgical History S/P cataract surgery S/P radiation therapy Family History Mother Myocardial infarction Father Hypertension Stroke Hyperlipidemia Aunt Myocardial infarction Family/Other TIA (transient ischemic attack) Social History Smoking Status: Never smoker Second Hand Exposure: No; Hx Alcohol Use: No Hx Substance Use: No Preferred Language: Dominican Communication Ability: Effective Aerobics Teacher Required: No Beliefs That Will Affect Care: None Current Living Situation: Spouse Feels Safe at Home: Yes Assistive Devices: Walker Allergies Allergies Allergy/AdvReac Type Severity Reaction Status Date / Time No Known Allergies Allergy Verified 07/29/20 10:30 Home Meds Home Medications Medication Instructions Recorded Confirmed clopidogrel 75 mg tablet 75 mg PO QAM #30 tab 09/05/18 07/29/20 duloxetine 60 mg capsule,delayed 60 mg PO BID cap 09/05/18 07/29/20 release ketoconazole 200 mg tablet 200 mg PO QAM 04/27/20 07/29/20 aspirin [Aspirin Low Dose] 81 mg PO QAM 07/27/20 07/29/20 meloxicam 15 mg PO QAM 07/27/20 07/29/20 methocarbamol 500 mg PO QAM 07/27/20 07/29/20 Previous Rx's Medication Instructions Recorded pregabalin 300 mg capsule 300 mg PO BID 90 Days #180 cap 05/12/20 amlodipine 2.5 mg PO PM #30 tab 07/29/20 Results & Data (ED) Vital Signs Vital Signs - 24 hr 07/27/20 15:12 07/27/20 15:53 07/27/20 16:00 Temperature 36.9 C Temperature Source Oral Pulse Rate 65 56 L 55 L Pulse Rate from SpO2 Sensor 57 L 56 L Respiratory Rate 18 17 15 Respiratory Effort / Characteristics Non-Labored Spontaneous Respiratory Depth Normal Blood Pressure 218/108 H Blood Pressure Mean 144 Blood Pressure Position Lying Pulse Oximetry 98 98 97 Oxygen Delivery Method Room Air Sepsis Recent Fever Within 48 Hours No Sepsis New/Unexplained Change in Mental Status No Sepsis Action Taken by Nursing No Action Required 07/27/20 16:20 07/27/20 16:22 07/27/20 16:30 Temperature Temperature Source Pulse Rate 60 59 L 58 L Pulse Rate from SpO2 Sensor 63 58 L Respiratory Rate 13 18 14 Respiratory Effort / Characteristics Respiratory Depth Blood Pressure 199/92 H 184/85 H Blood Pressure Mean 127 118 Blood Pressure Position Pulse Oximetry 98 Oxygen Delivery Method Sepsis Recent Fever Within 48 Hours Sepsis New/Unexplained Change in Mental Status Sepsis Action Taken by Nursing 07/27/20 16:40 07/27/20 16:50 Temperature Temperature Source Pulse Rate 59 L 58 L Pulse Rate from SpO2 Sensor 59 L Respiratory Rate 16 19 Respiratory Effort / Characteristics Respiratory Depth Blood Pressure Blood Pressure Mean Blood Pressure Position Pulse Oximetry 96 Oxygen Delivery Method Sepsis Recent Fever Within 48 Hours Sepsis New/Unexplained Change in Mental Status Sepsis Action Taken by Usp Medications Current Medication List: was personally reviewed by me Laboratory Data Attestation: I reviewed the patient's lab results. Result diagrams: 07/29/20 05:50 07/29/20 05:50 Lab Results 07/27/20 07/27/20 07/27/20 Range/Units 16:04 16:04 16:20 WBC (4.8-10.8) K/uL RBC (4.7-6.1) M/uL Hgb (14.0-18.0) g/dL Hct (42-52) % MCV (80-100) fL MCH (25-34) pg MCHC (32-36) g/dL RDW Std Deviation (36.4-46.3) fL RDW Coeff of Leonor (11.5-14.5) % Plt Count (130-400) K/uL MPV (7.4-10.4) fL Immature Gran % (Auto) % Neut % (Auto) % Lymph % (Auto) % [place] % (Auto) % Eos % (Auto) % Baso % (Auto) % Neut # (Auto) (1.4-6.5) K/uL Lymph # (Auto) (1.2-3.4) K/uL [place] # (Auto) (0.11-0.59) K/uL Eos # (Auto) (0-0.5) K/uL Baso # (Auto) (0-0.2) K/uL Immature Gran # (Auto) (0.00-0.02) K/uL PT (9.0-12.0) Seconds INR (0.9-1.1) APTT (21.0-31.0) Seconds PTT Ratio Sodium (136-145) mmol/L Potassium (3.5-5.1) mmol/L Chloride (98-107) mmol/L Carbon Dioxide (21-32) mmol/L Anion Gap (3-11) BUN (7-18) mg/dl Creatinine (0.6-1.4) mg/dl Est Cr Clr Drug Dosing ml/min Est GFR ( Amer) ml/min Est GFR (Non-Af Amer) ml/min BUN/Creatinine Ratio (10-20) Glucose (70-99) mg/dl Osmolality (280-300) mOsm/kg Calcium (8.5-10.1) mg/dl Magnesium (1.8-2.4) mg/dl Total Bilirubin (0.2-1) mg/dl AST (15-37) U/L ALT (12-78) U/L Alkaline Phosphatase (45-117) U/L Troponin I (0-0.045) ng/ml Total Protein (6.4-8.2) gm/dl Albumin (3.4-5.0) gm/dl Globulin (2.5-4.0) gm/dl Albumin/Globulin Ratio (0.9-2) Urine Color Yellow Urine Appearance Clear (Clear) Urine pH 7.0 (4.5-7.5) Ur Specific [place] 1.015 (1.000-1.030) Urine Protein Negative (Negative) Urine Glucose (UA) Negative (Negative) Urine Ketones Negative (Negative) Urine Blood Trace H (Negative) Urine Nitrite Negative (Negative) Urine Bilirubin Negative (Negative) Urine Urobilinogen Negative (Negative) Ur Leukocyte Esterase Negative (Negative) Urine WBC (Auto) 0 (0-5) /hpf Urine RBC (Auto) 0-4 (0-4) /hpf U Hyaline Cast (Auto) 0 (0-5) /lpf U Epithel Cells (Auto) 0-5 (0-5) /lpf Urine Bacteria (Auto) Negative (Negative) COVID-19 Eval Order Covid19 at [facility] SARS-CoV-2 (PCR) NEGATIVE (Negative) 07/27/20 07/27/20 07/27/20 Range/Units 16:36 16:36 16:36 WBC 7.60 (4.8-10.8) K/uL RBC 4.18 L (4.7-6.1) M/uL Hgb 12.3 L (14.0-18.0) g/dL Hct 37.1 L (42-52) % MCV 88.8 (80-100) fL MCH 29.4 (25-34) pg MCHC 33.2 (32-36) g/dL RDW Std Deviation 43.0 (36.4-46.3) fL RDW Coeff of Leonor 13.2 (11.5-14.5) % Plt Count 207 (130-400) K/uL MPV 10.4 (7.4-10.4) fL Immature Gran % (Auto) 0.3 % Neut % (Auto) 78.5 % Lymph % (Auto) 13.6 % [place] % (Auto) 6.8 % Eos % (Auto) 0.7 % Baso % (Auto) 0.1 % Neut # (Auto) 5.97 (1.4-6.5) K/uL Lymph # (Auto) 1.03 L (1.2-3.4) K/uL [place] # (Auto) 0.52 (0.11-0.59) K/uL Eos # (Auto) 0.05 (0-0.5) K/uL Baso # (Auto) 0.01 (0-0.2) K/uL Immature Gran # (Auto) 0.02 (0.00-0.02) K/uL PT 10.2 (9.0-12.0) Seconds INR 1.0 (0.9-1.1) APTT 28.9 (21.0-31.0) Seconds PTT Ratio 1.1 Sodium 130 L (136-145) mmol/L Potassium 4.4 (3.5-5.1) mmol/L Chloride 99 (98-107) mmol/L Carbon Dioxide 24 (21-32) mmol/L Anion Gap 7.0 (3-11) BUN 26 H (7-18) mg/dl Creatinine 0.94 (0.6-1.4) mg/dl Est Cr Clr Drug Dosing 61.2 ml/min Est GFR ( Amer) 85.3 ml/min Est GFR (Non-Af Amer) 73.6 ml/min BUN/Creatinine Ratio 27.5 H (10-20) Glucose 98 (70-99) mg/dl Osmolality (280-300) mOsm/kg Calcium 9.2 (8.5-10.1) mg/dl Magnesium 2.3 (1.8-2.4) mg/dl Total Bilirubin 0.4 (0.2-1) mg/dl AST 11 L (15-37) U/L ALT 13 (12-78) U/L Alkaline Phosphatase 109 (45-117) U/L Troponin I < 0.015 (0-0.045) ng/ml Total Protein 6.7 (6.4-8.2) gm/dl Albumin 3.6 (3.4-5.0) gm/dl Globulin 3.1 (2.5-4.0) gm/dl Albumin/Globulin Ratio 1.2 (0.9-2) Urine Color Urine Appearance (Clear) Urine pH (4.5-7.5) Ur Specific [place] (1.000-1.030) Urine Protein (Negative) Urine Glucose (UA) (Negative) Urine Ketones (Negative) Urine Blood (Negative) Urine Nitrite (Negative) Urine Bilirubin (Negative) Urine Urobilinogen (Negative) Ur Leukocyte Esterase (Negative) Urine WBC (Auto) (0-5) /hpf Urine RBC (Auto) (0-4) /hpf U Hyaline Cast (Auto) (0-5) /lpf U Epithel Cells (Auto) (0-5) /lpf Urine Bacteria (Auto) (Negative) COVID-19 Eval Order SARS-CoV-2 (PCR) (Negative) 07/27/20 Range/Units 16:36 WBC (4.8-10.8) K/uL RBC (4.7-6.1) M/uL Hgb (14.0-18.0) g/dL Hct (42-52) % MCV (80-100) fL MCH (25-34) pg MCHC (32-36) g/dL RDW Std Deviation (36.4-46.3) fL RDW Coeff of Leonor (11.5-14.5) % Plt Count (130-400) K/uL MPV (7.4-10.4) fL Immature Gran % (Auto) % Neut % (Auto) % Lymph % (Auto) % [place] % (Auto) % Eos % (Auto) % Baso % (Auto) % Neut # (Auto) (1.4-6.5) K/uL Lymph # (Auto) (1.2-3.4) K/uL [place] # (Auto) (0.11-0.59) K/uL Eos # (Auto) (0-0.5) K/uL Baso # (Auto) (0-0.2) K/uL Immature Gran # (Auto) (0.00-0.02) K/uL PT (9.0-12.0) Seconds INR (0.9-1.1) APTT (21.0-31.0) Seconds PTT Ratio Sodium (136-145) mmol/L Potassium (3.5-5.1) mmol/L Chloride (98-107) mmol/L Carbon Dioxide (21-32) mmol/L Anion Gap (3-11) BUN (7-18) mg/dl Creatinine (0.6-1.4) mg/dl Est Cr Clr Drug Dosing ml/min Est GFR ( Amer) ml/min Est GFR (Non-Af Amer) ml/min BUN/Creatinine Ratio (10-20) Glucose (70-99) mg/dl Osmolality 286 (280-300) mOsm/kg Calcium (8.5-10.1) mg/dl Magnesium (1.8-2.4) mg/dl Total Bilirubin (0.2-1) mg/dl AST (15-37) U/L ALT (12-78) U/L Alkaline Phosphatase (45-117) U/L Troponin I (0-0.045) ng/ml Total Protein (6.4-8.2) gm/dl Albumin (3.4-5.0) gm/dl Globulin (2.5-4.0) gm/dl Albumin/Globulin Ratio (0.9-2) Urine Color Urine Appearance (Clear) Urine pH (4.5-7.5) Ur Specific [place] (1.000-1.030) Urine Protein (Negative) Urine Glucose (UA) (Negative) Urine Ketones (Negative) Urine Blood (Negative) Urine Nitrite (Negative) Urine Bilirubin (Negative) Urine Urobilinogen (Negative) Ur Leukocyte Esterase (Negative) Urine WBC (Auto) (0-5) /hpf Urine RBC (Auto) (0-4) /hpf U Hyaline Cast (Auto) (0-5) /lpf U Epithel Cells (Auto) (0-5) /lpf Urine Bacteria (Auto) (Negative) COVID-19 Eval Order SARS-CoV-2 (PCR) (Negative) Administered Medications Discontinued Medications Acetaminophen (Acetaminophen 325 Mg Tab) 650 mg PO Q4H PRN PRN Reason: Pain or Fever Stop: 08/26/20 21:36 Last Admin: 07/28/20 12:44 Dose: 650 mg Documented by: [id number] Aspirin (Aspirin Chew 324 Mg) 324 mg PO NOW [facility] Stop: 07/27/20 17:30 Last Admin: 07/27/20 17:57 Dose: 324 mg Documented by: [id number] Aspirin (Aspirin 81 Mg Ectab) 81 mg PO [facility] Stop: 08/27/20 08:59 Last Admin: 07/29/20 08:46 Dose: 81 mg Documented by: [id number] Admin: 07/28/20 10:08 Dose: Not Given Documented by: [id number] Clopidogrel Bisulfate (Clopidogrel Bisulfate 75 Mg Tab) 75 mg PO [facility] Stop: 08/27/20 08:59 Last Admin: 07/29/20 08:46 Dose: 75 mg Documented by: [id number] Admin: 07/28/20 10:08 Dose: Not Given Documented by: [id number] Duloxetine HCl (Duloxetine Hcl 60 Mg Cap) 60 mg PO BID STEPHANIE Stop: 08/26/20 21:36 Last Admin: 07/29/20 08:46 Dose: 60 mg Documented by: [id number] Admin: 07/28/20 20:54 Dose: 60 mg Documented by: [id number] Admin: 07/28/20 10:08 Dose: Not Given Documented by: [id number] Admin: 07/28/20 00:14 Dose: Not Given Documented by: [id number] Magnesium Sulfate/Dextrose (Magnesium Sulfate / D5w) 1 gm in 100 mls @ 100 mls/hr IV NOW STA Stop: 07/27/20 18:08 Last Infusion: 07/27/20 22:25 Dose: 0 mls/hr Documented by: [id number] Admin: 07/27/20 17:57 Dose: 100 mls/hr Documented by: [id number] Ioversol (Optiray 350 500ml) 118 ml IV ONCE ONE Stop: 07/27/20 16:08 Last Admin: 07/27/20 16:07 Dose: 118 ml Documented by: [id number] Meloxicam (Meloxicam 7.5 Mg Tab) 15 mg PO ONE ONE Stop: 07/28/20 16:04 Last Admin: 07/28/20 16:44 Dose: 15 mg Documented by: [id number] Pregabalin (Pregabalin 150 Mg Cap) 300 mg PO BID STEPHANIE Stop: 08/26/20 21:36 Last Admin: 07/29/20 08:51 Dose: 300 mg Documented by: [id number] Admin: 07/28/20 20:54 Dose: 300 mg Documented by: [id number] Admin: 07/28/20 10:09 Dose: Not Given Documented by: [id number] Admin: 07/28/20 00:15 Dose: Not Given Documented by: [id number] Imaging Data Radiologist's Impression: Chest X-Ray 07/27/20 15:57 XR chest 1V portable CLINICAL HISTORY: Stroke Like Symptoms COMPARISON STUDY: Chest CT May 17, 2015. FINDINGS: Lung volumes are normal. Lungs are clear. There is no pneumothorax or pleural effusion. Cardiac size is stable. Mediastinal contours are normal. There is no evidence for pulmonary edema. Old bilateral rib fractures are incidentally noted. IMPRESSION: No acute cardiopulmonary findings. ACT 112: Negative or not required by law. Electronically signed by: Garfield Snowden M.D. 07/27/2020 4:[address] 07/27/20 15:57 CT head/brain wo con CLINICAL HISTORY: Stroke Like Symptoms COMPARISON STUDY: December 30, 2016 TECHNIQUE: Axial CT of the brain is performed from the vertex to the skull base. IV contrast was not administered for this examination. A dose lowering technique was utilized adhering to the principles of ALARA. CT DOSE: 1211.29 mGy.cm FINDINGS: No acute intracranial hemorrhage, no midline shift or space occupying lesions are seen. Large area of encephalomalacia is seen involving left frontal and temporal region representing old left MCA territory infarct. There are patchy white matter hypodensities likely on a small vessel basis. Redemonstration of atrophic changes of brain parenchyma mostly involving bila teral temporal lobes and associated with ex vacuo dilatation of ventricles. Small infarct within left basal ganglia is again seen. There is no acute depressed skull fractures seen. Visualized paranasal sinuses and mastoid air cells are patent and well-aerated. Vascular calcifications are seen within the anatomical region of bilateral internal carotid arteries. IMPRESSION: 1. No acute intracranial hemorrhage, no midline shift or space occupying lesions. 2. Stable old infarct within left MCA territory. ACT 112: Negative or not required by law. The above report was generated using voice recognition software. It may contain grammatical, syntax or spelling errors. Electronically signed by: Ingrid Patel DO 07/27/2020 4:19 PM Head CTA 07/27/20 15:57 CT angio head w con CLINICAL HISTORY: Stroke Like Symptoms TECHNIQUE: CT angiography of the head was performed in a dynamic helical fashion during intravenous administration of 118 cc of Optiray. MIP imaging was performed. A dose lowering technique was utilized adhering to the principles of ALARA. CT DOSE: COMPARISON STUDY: No previous studies for comparison. FINDINGS: Above 50% stenosis is seen within distal cervical aspect of the left internal carotid artery (5/42). Concentric atherosclerotic plaques are seen within supraclinoid aspect of the right and left carotid artery which shows blooming artifact and around 50-69% stenosis within left internal carotid artery (5/93). Mild nodularity of the right middle cerebral artery is seen with calcified plaques within its wall and no evidence of focal occlusion. Right and left anterior communicating arteries and bilateral anterior cerebral arteries are patent. Distal portion of the right vertebral artery is opacified throughout its visualized aspect without focal occlusion or significant stenosis. V4 segment of the left vertebral artery is not opacified and no connection to th e right vertebral artery is seen. Basal artery is small in caliber and tortuous. origin of the tortuous right posterior vertebral cerebral artery is seen. Left posterior cerebral artery is tortuous and shows nodular appearance. There is focal occlusion at the P2 segment (5/115) and are reconstitution of the distal flow within its distal aspect. IMPRESSION: 1. 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 2. 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 3. origin of the right posterior cerebral artery. 4. 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 ACT 112: Positive. There are findings on this exam that require communication between the performing entity and the patient following Patient Test Result Information Act ([place] Act 112) guidelines. The above report was generated using voice recognition software. It may contain grammatical, syntax or spelling errors. Electronically signed by: Ingrid Patel DO 07/27/2020 4:36 PM Neck CTA 07/27/20 15:57 CT ANGIOGRAPHY OF THE NECK WITH CONTRAST CLINICAL HISTORY: Stroke Like Symptoms COMPARISON STUDY: CTA of the neck July 22, 2014. Technique: CT angiography of the carotid and vertebral arteries was obtained using Optiray and 3D reconstruction on an independent workstation. NASCET criteria was utilized. Automated exposure control was utilized for the study. A dose lowering technique was utilized adhering to the principles of ALARA. Findings: Lung apices are clear. There is no cervical lymphadenopathy or cervical spine fracture. There is moderate to severe stenosis at the origin of the right subclavian artery. The right vertebral artery is patent. Note is made of moderate to severe stenosis at the origin of the left vertebral artery. There is no dissection within the major vessels of the neck. The left carotid stent is patent. Note is made of mild multifocal stenoses within the distal cervical portion of the left internal carotid artery. There is moderate plaque within the proximal right internal carotid artery without significant stenosis. IMPRESSION: 1. Patent left carotid stent. Mild multifocal stenosis within the distal cervical portion of the left internal carotid artery. 2. 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 ACT 112: Negative or not required by law. Electronically signed by: Garfield Snowden M.D. 07/27/2020 4:34 PM Discharge Plan Visit Data Chief Complaint: Weakness Stated Complaint: UNSTEADY GAIT ED Provider: Olaf Key Discharge Problem: Weakness following cerebrovascular accident (CVA) Patient Disposition: Admitted As Inpatient Discharge Instructions Interventions: ED Discharge Assessment Last Done: 07/27/20 20:47
[2020-07-27] MEDS ORDERED: ASPIRIN CHEW 324 MG PO STA (17:29)
--- NOTE | 2020-07-27 17:57 | Electrocardiogram Report ---
Test Reason : Blood Pressure : / mmHG Vent. Rate : 055 BPM Atrial Rate : 055 BPM P-R Int : 188 ms QRS Dur : 118 ms QT Int : 430 ms P-R-T Axes : 077 002 -19 degrees QTc Int : 411 ms Poor data quality, interpretation may be adversely affected Sinus bradycardia with Premature supraventricular complexes Incomplete right bundle branch block Abnormal ECG When compared with ECG of 19-MAY-2015 08:52, Premature supraventricular complexes are now Present Incomplete right bundle branch block is now Present Confirmed by Alex Ferrara ([id number]) on 07/27/2020 5:57:30 PM Referred By: REFERRED SELF Confirmed By:Riley Ferrara
--- NOTE | 2020-07-27 18:49 | History & Physical Report ---
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 - As above (3) Hemiparesis affecting right side as late effect of stroke: Chronic, normally walks with hemiwalker - PT/OT (4) Joint pain: has decreased his meloxicam and Robaxin as felt wasn't benefiting symptoms - Hold for tonight, and restart in morning if needed (5) Neuropathic pain: As above (6) Hyponatremia: Normal glucose, normal chloride, normal hco3, spec grav 1.015 - Asymptomatic - Not acute- NA in september - recheck in AM, Mae Uosm and serum Osm added History of Present Illness Primary Care Provider: Nirav Cruz MD 85 YOM past medical history of: HTN, HLD, Carotid artery stenosis with Left CEA complicated by Left MCA stroke. Patient had remnant aphasia and spastic right hemiparesis. Today patient was at home with his daughter and his , they noticed that in morning patient was not not taking in his normal fluid intake and he was starting to have some memory recall issues as well as fixating and repeating topics. Around lunch time ~1230 the patient got up to go to the bathroom, he called for help and was leaning up against the door jamb. At that time he exhibited worsening of his gait, and weakness requiring far more assistance than normal. While getting ready to come to the hospital, he also endorsed that his vision changed, he is unable to express how his vision changed. They then called 911 and patient was transported. He had a CT and CTA of the head and neck performed which revealed a focal occlusion within left posterior cerebral artery at its P2 segment, moderate to severe stenosis of the right subclavian and left vertebral arteries with multifocal stenosis in distal cervical portion of the LICA. Dr. Key discussed the case with telestroke at [facility], which deemed no further interventions secondary to location and not a TPA candidate secondary to exceeding time last known well. Patient will be admitted for continued monitoring and care. Patient will be admitted to PCU telemetry with frequent neruological examinations, monitoring of hemodynamics allowing for permissive HTN. Neurology consult placed, will obtain MRI. Allergies Allergy/AdvReac Type Severity Reaction Status Date / Time No Known Allergies Allergy Verified 07/29/20 10:30 Home Medications Medication Instructions Recorded Confirmed Type clopidogrel 75 mg tablet 75 mg PO QAM #30 tab 09/05/18 07/29/20 History duloxetine 60 mg capsule,delayed 60 mg PO BID cap 09/05/18 07/29/20 History release ketoconazole 200 mg tablet 200 mg PO QAM 04/27/20 07/29/20 History pregabalin 300 mg capsule 300 mg PO BID 90 Days #180 cap 05/12/20 07/29/20 Rx aspirin [Aspirin Low Dose] 81 mg PO QAM 07/27/20 07/29/20 History meloxicam 15 mg PO QAM 07/27/20 07/29/20 History methocarbamol 500 mg PO QAM 07/27/20 07/29/20 History amlodipine 2.5 mg PO PM #30 tab 07/29/20 07/29/20 Rx 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 Hernia History of brachytherapy Neuropathic pain Right gilles sensory pain from stroke Surgical History S/P cataract surgery S/P radiation therapy Family History Mother Myocardial infarction Father Hypertension Stroke Hyperlipidemia Aunt Myocardial infarction Family/Other TIA (transient ischemic attack) Social History Smoking Status: Never smoker Second Hand Exposure: No; Hx Alcohol Use: No Hx Substance Use: No Preferred Language: Bolivian Communication Ability: Effective Pickler Helper Required: No Beliefs That Will Affect Care: None Current Living Situation: Spouse Feels Safe at Home: Yes Assistive Devices: Walker Review of Systems Review of Systems: REVIEW OF SYSTEMS: Constitutional: No fever, sweats or chills, chornically cold Eyes: No diplopia, no worsening or blurred vision ENT: normal hearing, no trouble swallowing Respiratory: No cough, sputum, dyspnea at rest or on exertion Cardiovascular: No chest pain, tightness or palpitations Abdomen: No pain, nausea, vomiting, diarrhea or constipation Musculoskeletal: No joint pain, calf pain, swelling Neurologic: (+) worsening weakness and balance problems, neuropathic pain, NO numbness/tingling, or balance problems Psychiatric: No anxiety or depression Skin: No rash or itch Physical Exam Physical Exam: PHYSICAL EXAM: General: awake, alert, no apparent distress Head: Normocephalic, atraumatic ENT: PERRLA, EOMI, Visual goodwin difficult to appreciate as patient has difficulty performing, but appears to have right sided hemianopsia, no ph aryngeal exudate, mucous membranes moist Neuro: AAO x 3, speech fragmented with some expressive aphasia, no difficulty reading or naming objects or interpreting picture, right upper flexed contracte d 3/5 strength, left upper 5/5 strength, right lower 4/5 strength, left lower 5/5 strength, sensation intact and equal all extremities and dermatomes, no pronator drift Chest: equal rise and fall of the chest, no accessory muscle use, no heaves or thrills, Clear to auscultation, on room air, Cardiac: Regular rate and rhythm, telemetry reviewed- NSR-Sinus snow, skin warm dry, cap refill <3 seconds, peripheral pulses +2 no JVD, no murmur, no edema GI: NABS x 4 quadrants, soft, nontender to palpation, no rebound, guarding or tenderness : Spontaneously voiding, no pain, no CVA tenderness, Extremities: Right sided weakness, with flexion contracture to right hand. Psych: Normal mood and affect Skin: no rash or erythema Results & Data Results & Data ([facility]) Vital Signs (Past 12 Hours) Vital Signs Temp Pulse Resp BP Pulse Ox 07/27/20 17:55 55 L 17 07/27/20 17:50 55 L 19 07/27/20 17:40 57 L 16 07/27/20 17:31 60 16 97 07/27/20 17:30 59 L 15 96 07/27/20 17:20 62 23 97 07/27/20 17:10 57 L 15 95 07/27/20 17:00 60 14 175/91 H 07/27/20 16:50 58 L 19 07/27/20 16:40 59 L 16 96 07/27/20 16:30 58 L 14 184/85 H 98 07/27/20 16:22 59 L 18 199/92 H 07/27/20 16:20 60 13 07/27/20 16:00 55 L 15 97 07/27/20 15:53 56 L 17 98 07/27/20 15:12 36.9 C 65 18 218/108 H 98 Laboratory Results Abnormal lab results 07/27/20 07/27/20 07/27/20 Range/Units 16:20 16:36 16:36 RBC 4.18 L (4.7-6.1) M/uL Hgb 12.3 L (14.0-18.0) g/dL Hct 37.1 L (42-52) % Lymph # (Auto) 1.03 L (1.2-3.4) K/uL Sodium 130 L (136-145) mmol/L BUN 26 H (7-18) mg/dl BUN/Creatinine Ratio 27.5 H (10-20) AST 11 L (15-37) U/L Urine Blood Trace H (Negative) Diagnostic Findings Chest X-Ray 07/27/20 15:57 XR chest 1V portable CLINICAL HISTORY: Stroke Like Symptoms COMPARISON STUDY: Chest CT May 17, 2015. FINDINGS: Lung volumes are normal. Lungs are clear. There is no pneumothorax or pleural effusion. Cardiac size is stable. Mediastinal contours are normal. There is no evidence for pulmonary edema. Old bilateral rib fractures are incidentally noted. IMPRESSION: No acute cardiopulmonary findings. ACT 112: Negative or not required by law. Electronically signed by: Garfield Snowden M.D. 07/27/2020 4:[address] 07/27/20 15:57 CT head/brain wo con CLINICAL HISTORY: Stroke Like Symptoms COMPARISON STUDY: December 30, 2016 TECHNIQUE: Axial CT of the brain is performed from the vertex to the skull base. IV contrast was not administered for this examination. A dose lowering technique was utilized adhering to the principles of ALARA. CT DOSE: 1211.29 mGy.cm FINDINGS: No acute intracranial hemorrhage, no midline shift or space occupying lesions are seen. Large area of encephalomalacia is seen involving left frontal and temporal region representing old left MCA territory infarct. There are patchy white matter hypodensities likely on a small vessel basis. Redemonstration of atrophic changes of brain parenchyma mostly involving bilateral temporal lobes and associated with ex vacuo dilatation of ventricles. Small infarct within left basal ganglia is again seen. There is no acute depressed skull fractures seen. Visualized paranasal sinuses and mastoid air cells are patent and well-aerated. Vascular calcifications are seen within the anatomical region of bilateral internal carotid arteries. IMPRESSION: 1. No acute intracranial hemorrhage, no midline shift or space occupying lesions. 2. Stable old infarct within left MCA territory. Electronically signed by: Ingrid Patel DO 07/27/2020 4:19 PM Head CTA 07/27/20 15:57 CT angio head w con CLINICAL HISTORY: Stroke Like Symptoms TECHNIQUE: CT angiography of the head was performed in a dynamic helical fashion during intravenous administration of 118 cc of Optiray. MIP imaging was performed. A dose lowering technique was utilized adhering to the principles of ALARA. CT DOSE: COMPARISON STUDY: No previous studies for comparison. FINDINGS: Above 50% stenosis is seen within distal cervical aspect of the left internal carotid artery (5/42). Concentric atherosclerotic plaques are seen within supraclinoid aspect of the right and left carotid artery which shows blooming artifact and around 50-69% stenosis within left internal carotid artery (5/93). Mild nodularity of the right middle cerebral artery is seen with calcified plaques within its wall and no evidence of focal occlusion. Right and left anterior communicating arteries and bilateral anterior cerebral arteries are patent. Distal portion of the right vertebral artery is opacified throughout its visualized aspect without focal occlusion or significant stenosis. V4 segment of the left vertebral artery is not opacified and no connection to the right vertebral artery is seen. Basal artery is small in caliber and tortuous. origin of the tortuous right posterior vertebral cerebral artery is seen. Left posterior cerebral artery is tortuous and shows nodular appearance. There is focal occlusion at the P2 segment (5/115) and are reconstitution of the distal flow within its distal aspect. IMPRESSION: 1. 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 2. 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 3. origin of the right posterior cerebral artery. 4. 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 ACT 112: Positive. There are findings on this exam that require communication between the performing entity and the patient following Patient Test Result Information Act ([place] Act 112) guidelines. The above report was generated using voice recognition software. It may contain grammatical, syntax or spelling errors. Electronically signed by: Ingrid Patel DO 07/27/2020 4:36 PM Neck CTA 07/27/20 15:57 CT ANGIOGRAPHY OF THE NECK WITH CONTRAST CLINICAL HISTORY: Stroke Like Symptoms COMPARISON STUDY: CTA of the neck July 22, 2014. Technique: CT angiography of the carotid and vertebral arteries was obtained using Optiray and 3D reconstruction on an independent workstation. NASCET criteria was utilized. Automated exposure control was utilized for the study. A dose lowering technique was utilized adhering to the principles of ALARA. Findings: Lung apices are clear. There is no cervical lymphadenopathy or cervical spine fracture. There is moderate to severe stenosis at the origin of the right subclavian artery. The right vertebral artery is patent. Note is made of moderate to severe stenosis at the origin of the left vertebral artery. There is no dissection within the major vessels of the neck. The left carotid stent is patent. Note is made of mild multifocal stenoses within the distal cervical portion of the left internal carotid artery. There is moderate plaque within the proximal right internal carotid artery without significant stenosis. IMPRESSION: 1. Patent left carotid stent. Mild multifocal stenosis within the distal cervical portion of the left internal carotid artery. 2. 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 Electronically signed by: Garfield Snowden M.D. 07/27/2020 4:34 PM Medications Administered Discontinued Medications Aspirin (Aspirin Chew 324 Mg) 324 mg PO NOW STA Stop: 07/27/20 17:30 Last Admin: 07/27/20 17:57 Dose: 324 mg Documented by: [id number] Magnesium Sulfate/Dextrose (Magnesium Sulfate / D5w) 1 gm in 100 mls @ 100 mls/hr IV NOW STA Stop: 07/27/20 18:08 Last Admin: 07/27/20 17:57 Dose: 100 mls/hr Documented by: [id number] Ioversol (Optiray 350 500ml) 118 ml IV ONCE ONE Stop: 07/27/20 16:08 Last Admin: 07/27/20 16:07 Dose: 118 ml Documented by: [id number] Additional Comments: Sinus bradycardia with Premature supraventricular complexes Incomplete right bundle branch block Abnormal ECG When compared with ECG of 19-MAY-2015 08:52, Premature supraventricular complexes are now Present Incomplete right bundle branch block is now Present Confirmed by Alex Ferrara ([id number]) on 07/27/2020 5:57:30 PM Code Status & VTE Plan Code Status CODE: DNR/DNI VTE: SCD's, ASA, Plavix Supervising Physician Co-Signing Physician Notes Attending Attestation and Admission Note: Pt seen/examined, chart reviewed, care plan d/w CHASITY Hayden. I agree w/ the robison components of his documentation. 85yo male with prior left-sided stroke leading to right-sided hemiparesis presenting with worsening gait, weakness, and visual change. Brought to ER, had CTA head/neck & telestroke consult with [facility]. TPA not advi sed. 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 Admitted with concern for new stroke vs TIA. Patient did not have seizure activity by report. During my visit he was mildly confused and had difficulty following commands. PMH, PSH, allergies, meds, sochx, famhx - reviewed VS - BPs markedly elevated no fever gen - NAD eyes - right-sided homonymous hemianopsia, PERRL neck - no JVD heart - RRR, s1 s2 lungs - CTA b/l abd - distended, BS+, NT neuro - strength RUE/RLE 3-4/5; LUE/LLE 5/5; visual field cut as above; facial droop on right labs, imaging, EKG reviewed A/P: 1. known cerebrovascular disease with prior stroke; now with concern for new stroke vs TIA - MRI brain pending; cont asa/plavix until MRI returns 2. focal occlusion left CAMPAIGN DEVELOPER as seen on CTA head today 3. HTN - shoot for BP goal of ~180 systolic tonight (allow permissiveness tonight given #1 above) 4. visual field cut - right 5. hyponatremia - 130 - likely volume depletion; hydrate with isotonic fluids; BMP am Yvon Johnson MD PG Care Time/CCT Total # of Minutes Spent Total Time Spent with Patient: Total time spent is greater than 50% in coordination of care (as documented) at patient's floor/unit and/or counseling patient: Coding Level of Care Code 24868 Initial Inpt Care Lvl 3 Diagnoses CVA (cerebral vascular accident) I63.9 CVA mechanism: unspecified Carotid stenosis I65.29 Laterality: unspecified laterality Hemiparesis affecting right side as late effect of stroke I69.351 Joint pain M25.50 Joint pain location: unspecified Neuropathic pain M79.2 Hyponatremia E87.1 (1) Carotid stenosis Laterality: unspecified laterality Qualified Code(s): I65.29 - Occlusion and stenosis of unspecified carotid artery (2) Joint pain Joint pain location: unspecified Qualified Code(s): M25.50 - Pain in unspecified joint (3) CVA (cerebral vascular accident) CVA mechanism: unspecified Qualified Code(s): I63.9 - Cerebral infarction, unspecified
[2020-07-27] MEDS ORDERED: POLYETHYLENE (MIRALAX) 17 GM PACK PO PRN (21:37)
[2020-07-27] MEDS ORDERED: PHARMACIST DISCHARGE MED REC CONSULT PRN (21:37)
[2020-07-27] MEDS ORDERED: ONDANSETRON INJ 2 MG/ML 2 ML VIAL IV PRN (21:37)
[2020-07-27] MEDS ORDERED: ACETAMINOPHEN 325 MG TAB PO PRN (21:37)
[2020-07-27] MEDS ORDERED: hydrALAZINE HCL 20 MG/ML VIAL IV PRN (21:37)
[2020-07-28] MEDS: DULoxetine HCL 60 MG CAP PO SCH ×3 (00:14→20:54)
[2020-07-28] MEDS: PREGABALIN 150 MG CAP PO SCH ×3 (00:15→20:54)
[2020-07-28 07:47] LABS: Basophils # (auto) 0.01 K/uL (0-0.2); Basophils % (auto) 0.2 %; Eosinophils # (auto) 0.12 K/uL (0-0.5); Eosinophils % (auto) 2.3 %; Hematocrit (blood only) 37.6 % (42-52); Hemoglobin 12.6 g/dL (14.0-18.0); Immature Granulocytes # (auto) 0.01 K/uL (0.00-0.02); Immature Granulocytes % (auto) 0.2 %; Lymphocytes # (auto) 1.41 K/uL (1.2-3.4); Lymphocytes % (auto) 27.5 %; Mean Corpuscular Hemoglobin 29.6 pg (25-34); Mean Corpuscular Hgb Conc 33.5 g/dL (32-36); Mean Corpuscular Volume 88.3 fL (80-100); Mean Platelet Volume 10.8 fL (7.4-10.4); Monocytes # (auto) 0.53 K/uL (0.11-0.59); Monocytes % (auto) 10.4 %; Neutrophils # (auto) 3.04 K/uL (1.4-6.5); Neutrophils % (auto) 59.4 %; Platelet Count 201 K/uL (130-400); RDW Coefficient of Variation 13.2 % (11.5-14.5); RDW Standard Deviation 42.7 fL (36.4-46.3); Red Blood Count 4.26 M/uL (4.7-6.1); White Blood Count 5.12 K/uL (4.8-10.8)
[2020-07-28 08:09] LABS: BUN Creatinine Ratio 23.4 (10-20); Calcium 9.4 mg/dl (8.5-10.1); Creatinine Clr Calc Pharmacy 55.8 ml/min; Est GFR (African American) 76.4 ml/min; Est GFR (Non-African American) 65.9 ml/min; Magnesium 2.5 mg/dl (1.8-2.4)
--- NOTE | 2020-07-28 09:49 | Magnetic Resonance Report ---
MRI OF THE BRAIN WITHOUT CONTRAST CLINICAL HISTORY: posterior CVA COMPARISON STUDY: None. FINDINGS: Sagittal T1, axial diffusion, proton density and T2 weighted axial, coronal FLAIR, and axial T1-weigh denis images were acquired. No acute intracranial hemorrhage, no midline shift is seen. Large area of encephalomalacia is seen wi thin left parietal and occipital region and associated with slightly asymmetrical dilatation of occip ital horn of the left lateral ventricle. Few lacunar infarcts are seen within left basal ganglia. Axial diffusion-weighted images reveal no evidence of acute or subacute infarction. Diffuse atrophic changes of brain parenchyma are seen and associated with ex vacuo dilatation. Proton density T2-weighted and FLAIR images reveal patchy confluent areas of increased signal within periventricular white matter which extends to cortex within left frontal, parietal and occipital lobe s likely represent gliosis which surrounds large area of infarction. There are no abnormal flow voids. Orbits are unremarkable. Small area of fluid collection is seen within dependent portion of the right maxillary sinus. Sella i s slightly prominent measuring 1.3 cm in size. IMPRESSION: 1. Large area of encephalomalacia within left parietal and occipital lobe representing chronic infar ct. Increase in T2 FLAIR signal within surrounding white matter likely representing gliosis. 2. No acute intracranial hemorrhage, no midline shift or space occupying lesions. 3. Atrophic changes of brain parenchyma associated with ex vacuo dilatation of ventricles. 4. No evidence of restricted diffusion to suggest acute ischemia/infarct. 5. Small mucous polyp within right maxillary sinus. 6. Prominent sella. ACT 112: Negative or not required by law. The above report was generated using voice recognition software. It may contain grammatical, syntax o r spelling errors. Electronically signed by: Ingrid Patel DO 07/28/2020 9:48 AM
[2020-07-28] MEDS: ASPIRIN 81 MG ECTAB PO SCH (10:08)
[2020-07-28] MEDS: CLOPIDOGREL BISULFATE 75 MG TAB PO SCH (10:08)
--- NOTE | 2020-07-28 10:12 | Neurology Consultation ---
Date of Consultation July 28, 2020 Assessment & Plan (1) H/O: stroke with residual effects: Transient worsening of residual neurological deficits related to an old large left MCA infarct occurring in 2014. No evidence of acute or subacute infarct on recently completed MRI. Patient was significantly hypertensive at the time of his presentation with a blood pressure of 218/108. There was some potential concern for dehydration as well based on poor fluid intake. No evidence of restenosis of his left carotid stent. 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 Patient should continue with aspirin and Plavix. Given his degree of atherosclerotic disease, he should probably be on a statin as well, unless if he has not tolerated statin therapy in the past. Continue management of hypertension. Would avoid aggressive treatment, however. Systolic blood pressure goal should be between 140 and 160 mmHg. Consider obtaining mobile outpatient cardiac telemetry monitoring. No further immediate neurological recommendations, may follow-up with Dr. Raya or [facility] in neurology clinic. History of Present Illness Reason for Consultation: Stroke Requesting Physician: CHASITY Grimm Attending Physician: Ritesh White History of Present Illness The patient is an 85-year-old male who is known to the neurology service, follows with Dr. Raya in [facility]. 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 He has chronic residual aphasia and right hemiparesis. History also notable for stenting of the left carotid artery. He had a brain MRI completed last September for further assessment of worsening weakness without evidence of new or acute stroke at that time. He was last evaluated with [facility] this past April, primarily for management of neuropathic pain related to his history of stroke. He is prescribed methocarbamol, Lyrica, Cymbalta, Plavix, and aspirin. No adjustments were made in his treatment regimen at that time. The patient presented to the emergency department yesterday for further evaluation of mental status changes characterized by difficulty with memory, fixating on topics, and greater weakness, requiring more assistance than usual. Noted to have poor fluid intake lately, possible dehydration. The patient is a poor historian due to residual aphasia. Does not really recall specifics pertaining to his current presentat ion. Patient has had a fairly thorough neuro imaging evaluation including CT of the head, CT angiography of the head and neck, and brain MRI. No evidence of acute or subacute stroke. There is a large area of encephalomalacia within the left parietal and occipital lobes suggestive of chronic infarct with surrounding gliosis. No evidence of hemorrhage. There is chronic small vessel ischemic dis ease and atrophy including ex vacuo dilatation of the ventricles. CTA of the neck reveals a patent left carotid stent with multifocal stenoses within the distal cervical portion of the left internal carotid artery as well as moderate to severe stenosis at the origins of the right subclavian and left vertebral arteries. CTA of the head reveals a focal occlusion within the left posterior cerebral artery at its P2 segment, a nonopacified V4 segment of the left vertebral artery, origin of the right posterior cerebral artery, and atherosclerotic plaque of the bilateral internal carotid arteries with mild stenosis. Allergies Allergy/AdvReac Type Severity Reaction Status Date / Time No Known Allergies Allergy Verified 07/27/20 16:34 Home Medications Medication Instructions Recorded Confirmed Type clopidogrel 75 mg tablet 75 mg PO QAM #30 tab 09/05/18 07/27/20 History duloxetine 60 mg capsule,delayed 60 mg PO BID cap 09/05/18 07/27/20 History release ketoconazole 200 mg tablet 200 mg PO QAM 04/27/20 07/27/20 History lisinopril 20 mg tablet 20 mg PO QAM 04/27/20 07/27/20 History pregabalin 300 mg capsule 300 mg PO BID 90 Days #180 cap 05/12/20 07/27/20 Rx aspirin [Aspirin Low Dose] 81 mg PO QAM 07/27/20 07/27/20 History meloxicam 15 mg PO QAM 07/27/20 07/27/20 History methocarbamol 500 mg PO QAM 07/27/20 07/27/20 History Patient History Medical History 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 Carotid stenosis Hemiparesis affecting right side as late effect of stroke Hernia History of brachytherapy Neuropathic pain Right gilles sensory pain from stroke Surgical History S/P cataract surgery S/P radiation therapy Family History Mother Myocardial infarction Father Hypertension Stroke Hyperlipidemia Aunt Myocardial infarction Family/Other TIA (transient ischemic attack) Social History Smoking Status: Never smoker Second Hand Exposure: No; Do You Dip or Chew Tobacco: No; Tobacco Cessation Education Requested by Patient: No Hx Alcohol Use: No Hx Substance Use: No Preferred Language: Romansh Communication Ability: Effective Leach Tank Tender Required: No Beliefs That Will Affect Care: None Current Living Situation: Spouse Other Information That Helps Us Care for You: No Feels Safe at Home: Yes Safety Concerns: Feels Safe At This Time Assistive Devices: Walker Review of Systems Review of Systems: Unable to obtain due to aphasia Exam (Neuro) Constitutional: well developed and well nourished; no acute distress Eyes: normal visual goodwin by confrontation, PERRL, normal accommodation and EOM intact bilaterally; no fundoscopic abnormality, no nystagmus and no papilledema Cardiovascular: Vessels: normal carotid upstroke; no carotid bruit Neurologic: Oriented to:: Person; negative Place and Time Memory: negative Short Term Intact and Remote Intact Attention: Span Intact; negative Concentration Intact Language: negative Naming Objects and Repeating Phrases Speech Fluency: Dysfluency; negative Dysarthria Speech Aphasia: Aphasia Fund of Knowledge: Vocabulary; negative Current Events and Past History Cranial Nerves: Normal II (Visual goodwin full to confrontation, visual acuity normal), III, IV, (Pupils equal round reactive to light and accommodation, eye movements normal), V (Facial sensation intact), VIII (Hearing intact), IX, X (Palate elevates to midline), XI (Shoulder shrug intact) and XII (Tongue protrudes to midline); Abnorm VII (There is weakness of the right lower facial musculature/right facial droop.) Motor Strength: Pronator Drift Laterality: Right and Hemiparesis (Face and arm greater than leg) Laterality: Right; negative Normal Lower Extremities and Normal Upper Extremities Motor Tone: Normal Lower Extremities; negative Normal Upper Extremities (Increased tone for the right arm and leg noted) Muscle Bulk/Involuntary Movements: No Involuntary Movements; negative Muscle Atrophy Sensation: Light Touch Intact, Pain/Temperature Intact, Vibration Intact and Proprioception Intact Coordination: Dysdiadochokinesia, Finger-Nose Abnormal Laterality: Right and Heel-Ramirez Abnormal Laterality: Right Deep Tendon Reflexes: Rt Triceps: 3+, Lt Triceps: 2+, Rt Biceps: 3+, Lt Biceps: 2+, Rt Brachioradialis: 3+, Lt Brachioradialis: 2+, Rt Patellar: 3+, Lt Patellar: 2+, Rt Ankle: 3+ and Lt Ankle: 2+ Special Tests: Babinski Present (Right) Details: Gait cannot be tested in the context of patient's current neurological status. Results & Data ([facility]) Vital Signs (Past 12 Hours) Vital Signs Temp Pulse Pulse Resp BP Pulse Ox 07/28/20 08:01 36.8 C 54 L 16 133/73 92 07/28/20 08:00 61 07/28/20 03:05 36.6 C 63 14 114/59 L 93 07/27/20 22:57 36.4 C L 55 L 18 180/91 H 100 Laboratory Results WBC 5.12, hemoglobin 12.6, hematocrit 37.6, platelet count 201, sodium 136, potassium 4.0, BUN 24, creatinine 1.03, glucose 86, hemoglobin A1c 5.3, magnesium 2.5, calcium 9.4, triglycerides 100, cholesterol 172, LDL 110, VLDL 20, HDL 42, urinalysis unremarkable. Diagnostic Findings MRI of the brain and CT angiography of the head and neck are as described in history of present illness. I reviewed the images as well as the radiologist interpretation of these tests. Electrocardiogram reveals sinus bradycardia with premature supraventricular complexes, incomplete right bundle branch block, 55 bpm. Coding Level of Care Code 15429 Initial Inpt Care Lvl 3 Diagnoses H/O: stroke with residual effects I69.30
[2020-07-28 10:16] LABS: Estimated Average Glucose 105 mg/dl; Hemoglobin A1C 5.3 % (4.5-5.6)
[2020-07-28] MEDS ORDERED: MELOXICAM 7.5 MG TAB PO ONE (16:03)
--- NOTE | 2020-07-28 16:58 | XCELERA ---
[id number]
--- NOTE | 2020-07-28 19:20 | Ultrasound Report ---
DOPPLER ULTRASOUND OF THE RENAL ARTERIES CLINICAL HISTORY: Hypertension. COMPARISON STUDY: No priors. TECHNIQUE: Doppler sonography of the renal arteries was performed to assess renal artery stenosis. Im ages are reviewed in the transverse and longitudinal planes. FINDINGS: The kidneys demonstrate cortical atrophy. Increased echotexture suggesting medical renal disease. Cristiano ateral renal cysts measure up to 3.3 cm. The right kidney measures 10.9 cm in length, and the left ki dney measures 10.8 cm in length. There is no hydronephrosis. On the right, intrarenal arterial resistive indices range from 0.69 to 0.71. Intrarenal arterial wave forms are normal with brisk upstrokes. The right renal arterial waveform is normal, and velocities wi thin the right renal artery measure up to 95 cm/sec. The right renal vein is patent. On the left, intrarenal arterial resistive indices range from 0.53 to 0.61. Intrarenal arterial wave forms are normal with brisk upstrokes. There are elevated velocities within the proximal left renal a rtery. These measure up to 203 cm/sec. There is mild blunting of the arterial upstroke seen in the di stal left renal artery. The left renal vein is patent. The abdominal aorta is patent. Velocities within the abdominal aorta measure up to 85 cm/s. IMPRESSION: 1. There are elevated velocities within the proximal left renal artery suggesting stenosis. 2. There is no sonographic evidence of right renal artery stenosis. 3. The kidneys demonstrate cortical atrophy and show evidence of medical renal disease. ACT 112: Negative or not required by law. Electronically signed by: Vinnie Caceres M.D. 07/28/2020 7:19 PM
--- NOTE | 2020-07-28 22:04 | Hospitalist Progress Note ---
Date of Service July 28, 2020 Assessment & Plan (1) CVA (cerebral vascular accident): Occlusion within left posterior cerebral artery at its P2 segment., Old left MCA CVA in 2015 - Continue ASA/Plavix - Allow permissive HTN- follow neuro exams q2 hours - Hydralazine PRN for SBP >220 or DPB>114, Cardene if needed - Support BP if hypotension and worsening mental status occur - Continue statin - Echo in morning - MRI brain - CT head for any worsening in mental status - Passed bedside swallow screen Appreciate input from Neuro: Transient worsening of residual neurological deficits related to an old large left MCA infarct occurring in 2014. No evidence of acute or subacute infarct on recently completed MRI. Patient was significantly hypertensive at the time of his presentation with a blood pressure of 218/108. There was some potential concern for dehydration as well based on poor fluid intake. No evidence of restenosis of his left carotid stent. 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 Patient should continue with aspirin and Plavix. Given his degree of atherosclerotic disease, he should probably be on a statin as well, unless if he has not tolerated statin therapy in the past. Continue management of hypertension. Would avoid aggressive treatment, however. Systolic blood pressure goal should be between 140 and 160 mmHg. Plan would be to discharge in AM if BP is at goal. (2) Carotid stenosis: Moderate to severe stenoses at the origins of the right subclavian and left vertebral arteries. - As above (3) Hemiparesis affecting right side as late effect of stroke: Chronic, normally walks with hemiwalker - PT/OT (4) Joint pain: has decreased his meloxicam and Robaxin as felt wasn't benefiting symptoms - Hold for tonight, and restart in morning if needed (5) Neuropathic pain: As above (6) Hyponatremia: Normal glucose, normal chloride, normal hco3, spec grav 1.015 - Asymptomatic - Not acute- NA in september - recheck in AM, Mae Uosm and serum Osm added Admission and Anticipated Discharge Date Admission Date: July 27, 2020 Subjective Patient reports having severe pain on his right side. His family is at bedside and report that his pain is chronic. Review of Systems Review of Systems: All systems reviewed & are unremarkable except as noted in HPI & below Physical Exam Physical Exam: General: awake, alert, no apparent distress Head: Normocephalic, atraumatic ENT: PERRLA, EOMI, Visual goodwin difficult to appreciate as patient has difficulty performing, but appears to have right sided hemianopsia, no pharyngeal exudate, mucous membranes moist Neuro: AAO x 3, speech fragmented with some expressive aphasia Chest: equal rise and fall of the chest, no accessory muscle use, no heaves or thrills, Clear to auscultation, on room air, Cardiac: Regular rate and rhythm, telemetry reviewed- NSR-Sinus snow, skin warm dry, cap refill <3 seconds, peripheral pulses +2 no JVD, no murmur, no edema GI: NABS x 4 quadrants, soft, nontender to palpation, no rebound, guarding or tenderness : Spontaneously voiding, no pain, no CVA tenderness, Extremities: Right sided weakness, with flexion contracture to right hand. Psych: Normal mood and affect Skin: no rash or erythema Results & Data Results & Data ([facility]) Vital Signs (Past 12 Hours) Vital Signs Temp Pulse Pulse Pulse Resp BP Pulse Ox 07/28/20 19:55 37.0 C 78 19 157/85 H 97 07/28/20 16:16 61 07/28/20 15:31 36.3 C L 61 21 171/84 H 97 07/28/20 11:49 36.6 C 58 L 19 135/64 95 PG Care Time/CCT Total # of Minutes Spent Total Time Spent with Patient: Total time spent is greater than 50% in coordination of care (as documented) at patient's floor/unit and/or counseling patient: Coding Level of Care Code 56375 Subseq Hosp Care Lvl 3 Diagnoses CVA (cerebral vascular accident) I63.9 CVA mechanism: unspecified Carotid stenosis I65.29 Laterality: unspecified laterality Hemiparesis affecting right side as late effect of stroke I69.351 Joint pain M25.50 Joint pain location: unspecified Neuropathic pain M79.2 Hyponatremia E87.1 Time Spent (min) 35 (1) Carotid stenosis Laterality: unspecified laterality Qualified Code(s): I65.29 - Occlusion and stenosis of unspecified carotid artery (2) Joint pain Joint pain location: unspecified Qualified Code(s): M25.50 - Pain in unspecified joint (3) CVA (cerebral vascular accident) CVA mechanism: unspecified Qualified Code(s): I63.9 - Cerebral infarction, unspecified
[2020-07-29 06:41] LABS: Basophils # (auto) 0.02 K/uL (0-0.2); Basophils % (auto) 0.3 %; Eosinophils # (auto) 0.12 K/uL (0-0.5); Eosinophils % (auto) 1.7 %; Hematocrit (blood only) 36.2 % (42-52); Hemoglobin 12.1 g/dL (14.0-18.0); Immature Granulocytes # (auto) 0.01 K/uL (0.00-0.02); Immature Granulocytes % (auto) 0.1 %; Lymphocytes # (auto) 1.69 K/uL (1.2-3.4); Lymphocytes % (auto) 24.6 %; Mean Corpuscular Hgb Conc 33.4 g/dL (32-36); Mean Corpuscular Volume 89.8 fL (80-100); Mean Platelet Volume 10.7 fL (7.4-10.4); Monocytes # (auto) 0.73 K/uL (0.11-0.59); Monocytes % (auto) 10.6 %; Neutrophils # (auto) 4.31 K/uL (1.4-6.5); Neutrophils % (auto) 62.7 %; Platelet Count 201 K/uL (130-400); RDW Coefficient of Variation 13.2 % (11.5-14.5); RDW Standard Deviation 43.6 fL (36.4-46.3); Red Blood Count 4.03 M/uL (4.7-6.1); White Blood Count 6.88 K/uL (4.8-10.8)
[2020-07-29 07:07] LABS: BUN Creatinine Ratio 31.9 (10-20); Calcium 9.1 mg/dl (8.5-10.1); Creatinine Clr Calc Pharmacy 53.3 ml/min; Est GFR (African American) 72.2 ml/min; Est GFR (Non-African American) 62.3 ml/min; Magnesium 2.4 mg/dl (1.8-2.4); Potassium 3.9 mmol/L (3.5-5.1)
[2020-07-29] MEDS: DULoxetine HCL 60 MG CAP PO SCH (08:46)
[2020-07-29] MEDS: ASPIRIN 81 MG ECTAB PO SCH (08:46)
[2020-07-29] MEDS: CLOPIDOGREL BISULFATE 75 MG TAB PO SCH (08:46)
[2020-07-29] MEDS: PREGABALIN 150 MG CAP PO SCH (08:51)
[2020-07-29] MEDS ORDERED: STROKE PATIENT DISCHARGE STA (09:17)
--- NOTE | 2020-08-02 23:07 | Discharge Summary ---
Date of Service July 29, 2020 Admission HPI Per Admitting Provider 85 YOM past medical history of: HTN, HLD, Carotid artery stenosis with Left CEA complicated by Left MCA stroke. Patient had remnant aphasia and spastic right hemiparesis. Today patient was at home with his daughter and his , they noticed that in morning patient was not not taking in his normal fluid intake and he was starting to have some memory recall issues as well as fixating and repeating topics. Around lunch time ~1230 the patient got up to go to the bathroom, he called for help and was leaning up against the door jamb. At that time he exhibited worsening of his gait, and weakness requiring far more assistance than normal. While getting ready to come to the hospital, he also endorsed that his vision changed, he is unable to express how his vision changed. They then called 911 and patient was transported. He had a CT and CTA of the head and neck performed which revealed a focal occlusion within left posterior cerebral artery at its P2 segment, moderate to severe stenosis of the right subclavian and left vertebral arteries with multifocal stenosis in distal cervical portion of the LICA. Dr. Key discussed the case with telestroke at [facility], which deemed no further interventions secondary to location and not a TPA candidate secondary to exceeding time last known well. Patient will be admitted for continued monitoring and care. Patient will be admitted to PCU telemetry with frequent neruological examinations, monitoring of hemodynamics allowing for permissive HTN. Neurology consult placed, will obtain MRI. Principal Diagnosis H/O: stroke with residual effects: Discharge Exam General: awake, alert, no apparent distress Head: Normocephalic, atraumatic ENT: PERRLA, EOMI, Visual goodwin difficult to appreciate as patient has difficulty performing, but appears to have right sided hemianopsia, no pharyngeal exudate, mucous membranes moist Neuro: AAO x 3, speech fragmented with some expressive aphasia Chest: equal rise and fall of the chest, no accessory muscle use, no heaves or thrills, Clear to auscultation, on room air, Cardiac: Regular rate and rhythm, telemetry reviewed- NSR-Sinus snow, skin warm dry, cap refill <3 seconds, peripheral pulses +2 no JVD, no murmur, no edema GI: NABS x 4 quadrants, soft, nontender to palpation, no rebound, guarding or t enderness : Spontaneously voiding, no pain, no CVA tenderness, Extremities: Right sided weakness, with flexion contracture to right hand. Psych: Normal mood and affect Skin: no rash or erythema Discharge Data Allergies Allergy/AdvReac Type Severity Reaction Status Date / Time No Known Allergies Allergy Verified 07/29/20 10:30 Consultations 07/27/20 17:24 ED Decision to Admit Stat 07/27/20 21:37 Consult Neurology Routine Ordered Studies 07/27/20 15:57 CT angio head w con Stat CT angio neck with con Stat CT head/brain wo con Stat 07/27/20 19:00 MR brain wo con Routine 07/28/20 11:46 US duplex renal artery Routine Hospital Course (1) CVA (cerebral vascular accident): Occlusion within left posterior cerebral artery at its P2 segment., Old left MCA CVA in 2014 - Continue ASA/Plavix - Allow permissive HTN- follow neuro exams q2 hours - Hydralazine PRN for SBP >220 or DPB>114, Cardene if needed - Support BP if hypotension and worsening mental status occur - Continue statin - Echo in morning - MRI brain - CT head for any worsening in mental status - Passed bedside swallow screen Appreciate input from Neuro: Transient worsening of residual neurological deficits related to an old large left MCA infarct occurring in 2014. No evidence of acute or subacute infarct on recently completed MRI. Patient was significantly hypertensive at the time of his presentation with a blood pressure of 218/108. There was some potential concern for dehydration as well based on poor fluid intake. No evidence of restenosis of his left carotid stent. 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 Patient should continue with aspirin and Plavix. Given his degree of atherosclerotic disease, he should probably be on a statin as well, unless if he has not tolerated statin therapy in the past. Continue management of hypertension. Would avoid aggressive treatment, however. Systolic blood pressure goal should be between 140 and 160 mmHg. will discharge with amlodipine. Hold alexi inhibitor. will followup with Neuro today. (2) Carotid stenosis: Moderate to severe stenoses at the origins of the right subclavian and left vertebral arteries. - As above (3) Hemiparesis affecting right side as late effect of stroke: Chronic, normally walks with hemiwalker - PT/OT (4) Joint pain: has decreased his meloxicam and Robaxin as felt wasn't benefiting symptoms - Hold for tonight, and restart in morning if needed (5) Neuropathic pain: As above (6) Hyponatremia: Normal glucose, normal chloride, normal hco3, spec grav 1.015 - Asymptomatic - Not acute- NA in september - recheck in AM, Mae Uosm and serum Osm added Total Time Total Time Spent Total Time Spent (In Minutes): 32 Discharge Plan Discharge Items Patient Disposition: Home - Home Health Services Reason For Visit: POSTERIOR STROKE Discharge Diagnosis: Hypertensive urgency/ renal artery stenosis Activity: Resume your previous activity Non-emergency contact: Primary Care Provider Call non-emergency contact if: you have any medication questions Follow-up/Referrals: Nirav Cruz MD [Primary Care Provider] - 08/02/20 1:10 pm Diet: Heart Healthy Addtl Attending Provider Instructions: You were found to have elevated blood pressure. This likely attributed to your symptoms. We obtained an MRI of the brain which did not show a new stroke. You were found to have an stenosis (blockage) of your renal artery. This is likely attributing to your high blood pressure. Will cut back on your alexi inhibitor and place you on a calcium channel breonna. will recommend followup with PCP in 1-[address] Fallon, a vascular surgeon is aware and will followup with you as an outpatient. In regards to Meloxicam, this is an NSAID. Nonsteroidal anti-inflammatory drugs (NSAIDs) cause an increased risk of serious cardiovascular thrombotic events, including myocardial infarction (DE) and stroke, which can be fatal. This risk may occur early in treatment and may increase with duration of use. Also do not combine with Aleve, or naprosyn as you are taking the maximum dose of his NSAID. Pending Studies at Discharge: No Stand-Alone Forms: [facility], Smoking Cessation Medications and DC Order Prescriptions: New amlodipine 2.5 mg tablet 2.5 mg PO PM Qty: 30 RF: 0 Continued duloxetine 60 mg capsule,delayed release(DR/EC) 60 mg PO BID RF: 0 clopidogrel 75 mg tablet 75 mg PO QAM Qty: 30 RF: 0 pregabalin 300 mg capsule 300 mg PO BID 90 Days Qty: 180 RF: 1 ketoconazole 200 mg tablet 200 mg PO QAM RF: 0 meloxicam 15 mg tablet 15 mg PO QAM RF: 0 methocarbamol 500 mg tablet 500 mg PO QAM RF: 0 aspirin [Aspirin Low Dose] 81 mg Tablet,Delayed Release (Dr/Ec) 81 mg PO QAM RF: 0 Discontinued lisinopril 20 mg tablet 20 mg PO QAM RF: 0 Discharge Orders: Discharge Order (Routine); Ordered 07/29/20 Ordered By: Ritesh Benavides/Other Patient Handouts: Taking Amlodipine Admission Data Admit Date/Time: 07/27/20 18:37 Attending Provider: Ritesh White Admit Provider: Justyn Hayden Primary Care Provider: Nirav Cruz Other Providers: Yvon Johnson Brian A. Other Interventions: Discharge Summary Assessment (RN) Last Done: 07/29/20 09:18 Coding Level of Care Code D/C Day Management >30 mins Diagnoses CVA (cerebral vascular accident) I63.9 CVA mechanism: unspecified Carotid stenosis I65.29 Laterality: unspecified laterality Hemiparesis affecting right side as late effect of stroke I69.351 Joint pain M25.50 Joint pain location: unspecified Neuropathic pain M79.2 Hyponatremia E87.1
--- NOTE | 2020-08-09 14:09 | Coding Query ---
CODING QUERY To promote full compliance with coding requirements relating to patient care, provider participation is requested in all cases of aviation medicine specialist uncertainty. 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 No evidence of acute or subacute infarct on recently completed MRI. Patient was significantly hypertensive at the time of his presentation with a blood pressure of 218/108. There was some potential concern for dehydration as well based on poor fluid intake. No evidence of restenosis of his left carotid stent. 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 Please clarify below, in your clinical opinion. ( ) Likely Acute CVA of the left posterior cerebral artery ( ) Likely Acute CVA Other: Please Specify ( X) No Acute CVA Physician's Response(s): Thank you Argelia Trevino Principal Diagnosis: "that condition established after study, to be chiefly responsible for occasioning the admission of the patient to the hospital for care." Co-Existing Principal Diagnosis: "when two or more diagnoses equally meet the criteria for principal diagnosis as determined by the circumstances of admission, diagnostic work up, and/or therapy provided, and the Alphabetic Index, Tabular List, or another coding guideline does not provide sequencing direction, any one of the diagnoses may be sequenced first." "When the physician has documented what appears to be a current diagnosis in the body of the record, but has not included the diagnosis in the final diagnostic statement, the physician should be asked whether the diagnosis should be added." (Source [facility]oding [facility] 2 QTR90. p3-4) [email or web address]
== END 2020-07-29 09:31 | disposition home health service (06) | DRG 57 ==
LOC: ED 14:53 → 2E 18:37 → SUATTDRO 18:37 → 2E 20:47